=== PATIENT | female | born 1970 | race Caucasian/White ===

== ENCOUNTER → 2020-02-29 08:28 | Outpatient (BNVA) | payer OTHER, SELFPAY | PROVIDERS: PCP Family Medicine; Visit Provider Physician Assistant | DX: Z98.84 Bariatric surgery status (principal) | CPT/HCPCS: 99212 ==

== ENCOUNTER → 2020-06-01 08:44 | Outpatient (BNVA) | payer OTHER, SELFPAY | PROVIDERS: PCP Family Medicine; Visit Provider Physician Assistant | DX: F41.8 Other specified anxiety disorders (principal); Z98.84 Bariatric surgery status | CPT/HCPCS: Q3014 ==

== ENCOUNTER → 2020-06-29 08:13 | Outpatient (BNVA) | payer OTHER, SELFPAY | PROVIDERS: PCP Family Medicine; Visit Provider Dietitian, Registered ==

== ENCOUNTER → 2020-07-19 09:57 | Outpatient (BNVA) | payer OTHER, SELFPAY | PROVIDERS: PCP Family Medicine; Visit Provider Dietitian, Registered ==

== ENCOUNTER → 2020-09-14 16:25 | Outpatient (BNVA) | payer OTHER, SELFPAY | PROVIDERS: PCP Family Medicine; Visit Provider Physician Assistant | DX: E66.3 Overweight (principal); M19.90 Unspecified osteoarthritis, unspecified site; Z98.84 Bariatric surgery status; Z68.26 Body mass index [BMI] 26.0-26.9, adult | CPT/HCPCS: 99212 ==

== ENCOUNTER 2020-09-24 11:24 | Outpatient (REF) | payer OTHER, SELFPAY ==
[2020-09-24 13:21] LABS: MANUAL DIFF FLAG NO
[2020-09-24 13:41] LABS: Basophils Percent Auto 0.8 % (0-2); Eosinophils Absolute Auto 0.1 X10*3/uL (0.0-0.4); Eosinophils Percent Auto 2.6 % (0-4); Hematocrit 39.4 % (37-47); Hemoglobin 12.7 g/dl (12.0-16.0); Imm Gran Abs Auto 0.02 X10*3/uL (0.00-0.03); Imm Gran Pct Auto 0.4 % (0.0-0.4); Lymphocytes Absolute Auto 1.2 X10*3/uL (1.2-4.9); Lymphocytes Percent Auto 24.3 % (20-40); Mean Corpuscular HGB Conc 32.2 g/dl (31.0-35.0); Mean Corpuscular Volume 93.1 fL (80-98); Mean Platelet Volume 10.6 fL (9.4-12.3); Monocytes Absolute Auto 0.6 X10*3/uL (0.1-1.2); Monocytes Percent Auto 12.6 % (2-11); Neutrophils Percent Auto 59.3 % (45-73); Platelet Count 294 X10*3/uL (160-400); Red Blood Count 4.23 X10*6/uL (4.20-5.50); Red Cell Distribution Width 13.5 % (11.0-16.0); White Blood Count 5.1 X10*3/uL (4.8-10.8)
[2020-09-24 13:45] LABS: Estimated Average Glucose 97 mg/dL
[2020-09-24 13:47] LABS: Alanine Aminotransferase 12 U/L (0-31); Albumin Level 4.2 g/dL (3.5-5.0); Alkaline Phosphatase 63 U/L (39-117); Anion Gap 14 (12-20); Aspartate Amino Transferase 21 U/L (5-31); Bilirubin Total 0.7 mg/dL (0.0-1.0); Blood Urea Nitrogen 19 mg/dL (9-16); C Reactive Protein 0.07 mg/dL (< or = 0.50); Calcium 9.4 mg/dL (8.4-10.2); Carbon Dioxide 21 mmol/L (22-29); Chloride 105 mmol/L (96-108); Cholesterol 182 mg/dL; Estimated Glomerular Filt Rate > 60; Glucose Random 81 mg/dL (60-115); HDL Cholesterol 75 mg/dL; Iron 91 mcg/dL (30-160); LDL Cholesterol Calculated 97 mg/dl; Percent Iron Saturation 20 % (15-50); Potassium 4.8 mmol/L (3.3-5.1); Sodium 135 mmol/L (135-145); Total Iron Binding Capacity 457 mcg/dL (228-428); Total Protein 7.5 g/dL (6.5-8.0); Triglycerides 54 mg/dL; Unsaturated Iron Binding 366 ug/dL
[2020-09-24 14:07] LABS: Ferritin 12 ng/mL (10-250); TSH reflex Free T4 1.21 uIU/mL (0.32-4.0); Vitamin D 25-OH Total 30.5 ng/mL (>30)
[2020-09-24 14:22] LABS: Vitamin B12 476 pg/mL (200-900)
[2020-09-25 18:56] LABS: Insulin Level Total 3.8 uIU/mL
[2020-09-26 13:32] LABS: Calcium (PTHI) 9.6 mg/dL (8.6-10.2); PTHI 35 pg/mL (14-64)
[2020-09-27 06:32] LABS: Zinc 104 mcg/dL (60-130)
[2020-09-27 20:37] LABS: Vitamin A 40 mcg/dL (38-98)
[2020-09-30 11:52] LABS: Vitamin B1 9 nmol/L (8-30)
== END 2020-09-24 11:25 | disposition home or self-care (01) ==
LOC: HO.LAB 11:24
PROVIDERS: PCP Family Medicine; Visit Provider Physician Assistant
DX: M19.90 Unspecified osteoarthritis, unspecified site (principal); M79.7 Fibromyalgia; Z98.84 Bariatric surgery status
CPT/HCPCS: 36415; 80053; 80061; 82306; 82607; 82728; 82746; 83036; 83525; 83540; 83970; 84425; 84443; 84590; 84630; 85025; 86140

== ENCOUNTER → 2021-01-16 09:26 | Outpatient (BNVA) | payer OTHER, SELFPAY | PROVIDERS: PCP Family Medicine; Referring Provider Family Medicine; Visit Provider Physician Assistant | DX: E66.3 Overweight (principal); Z98.84 Bariatric surgery status; Z68.26 Body mass index [BMI] 26.0-26.9, adult | CPT/HCPCS: 99212 ==

== ENCOUNTER → 2021-05-07 09:33 | Outpatient (BNVA) | payer OTHER, SELFPAY | PROVIDERS: PCP Family Medicine; Visit Provider Dietitian, Registered | DX: E66.3 Overweight (principal); Z3A.28 28 weeks gestation of pregnancy | CPT/HCPCS: 97803 ==

== ENCOUNTER → 2021-10-09 12:56 | Outpatient (BNVA) | payer OTHER, SELFPAY | PROVIDERS: PCP Family Medicine; Visit Provider Physician Assistant Surgical | DX: E66.3 Overweight (principal); Z98.84 Bariatric surgery status; Z68.30 Body mass index [BMI] 30.0-30.9, adult | CPT/HCPCS: 99212 ==

== ENCOUNTER 2021-10-11 09:31 | Outpatient (REF) | payer OTHER, SELFPAY ==
[2021-10-11 10:22] LABS: Basophils Percent Auto 0.6 % (0-2); Eosinophils Absolute Auto 0.2 X10*3/uL (0.0-0.4); Eosinophils Percent Auto 3.2 % (0-4); Hematocrit 36.8 % (37.0-47.0); Hemoglobin 11.9 g/dl (12.0-16.0); Imm Gran Abs Auto 0.01 X10*3/uL (0.00-0.03); Imm Gran Pct Auto 0.2 % (0.0-0.4); Lymphocytes Absolute Auto 1.1 X10*3/uL (1.2-4.9); Lymphocytes Percent Auto 23.7 % (20-40); MANUAL DIFF FLAG SCAN; Mean Corpuscular HGB Conc 32.3 g/dl (31.0-35.0); Mean Corpuscular Hemoglobin 29.6 pg (27.0-33.0); Mean Corpuscular Volume 91.5 fL (80.0-98.0); Mean Platelet Volume 11.8 fL (9.4-12.3); Monocytes Absolute Auto 0.7 X10*3/uL (0.1-1.2); Monocytes Percent Auto 14.3 % (2-11); Neutrophils Absolute Auto 2.8 x10*3/uL (2.0-8.3); PLT CLUMP 1; Red Blood Count 4.02 X10*6/uL (4.20-5.50); Red Cell Distribution Width 14.5 % (11.0-16.0); SCAN SMEAR FLAG 1
[2021-10-11 10:39] LABS: Estimated Average Glucose 100 mg/dL; Hemoglobin A1c % 5.1 %
[2021-10-11 10:52] LABS: Alanine Aminotransferase 17 U/L (0-31); Alkaline Phosphatase 67 U/L (39-117); Anion Gap 12 (12-20); Aspartate Amino Transferase 19 U/L (5-31); Bilirubin Total 0.4 mg/dL (0.0-1.0); Blood Urea Nitrogen 15 mg/dL (9-16); C Reactive Protein 0.15 mg/dL (< or = 0.50); Calcium 9.1 mg/dL (8.4-10.2); Carbon Dioxide 24 mmol/L (22-29); Chloride 106 mmol/L (96-108); Cholesterol 203 mg/dL; Estimated Glomerular Filt Rate > 60; Glucose Random 88 mg/dL (60-115); HDL Cholesterol 69 mg/dL; Iron 49 mcg/dL (30-160); LDL Cholesterol Calculated 124 mg/dl; Percent Iron Saturation 10 % (15-50); Potassium 4.5 mmol/L (3.3-5.1); Sodium 137 mmol/L (135-145); Total Iron Binding Capacity 479 mcg/dL (228-428); Total Protein 7.4 g/dL (6.5-8.0); Triglycerides 51 mg/dL; Unsaturated Iron Binding 430 ug/dL
[2021-10-11 11:06] LABS: Ferritin 9 ng/mL (10-250); TSH reflex Free T4 2.15 uIU/mL (0.32-4.0); Vitamin D 25-OH Total 29.2 ng/mL (>30)
[2021-10-11 11:12] LABS: White Blood Count 4.8 X10*3/uL (4.8-10.8)
[2021-10-11 11:17] LABS: Folate 15.1 ng/mL (> or = 4.0); Platelet Count 193 X10*3/uL (160-400); Vitamin B12 463 pg/mL (200-900)
[2021-10-11 11:18] LABS: SLIDE REVIEW VERIFIED
[2021-10-11 11:44] LABS: Insulin 10 uU/mL (2-29)
[2021-10-14 15:52] LABS: Calcium (PTHI) 9.3 mg/dL (8.6-10.2); PTHI 54 pg/mL (16-77)
[2021-10-15 12:22] LABS: Vitamin B1 13 nmol/L (8-30)
[2021-10-15 14:51] LABS: Zinc 74 mcg/dL (60-130)
[2021-10-16 13:06] LABS: Vitamin A 41 mcg/dL (38-98)
== END 2021-10-11 09:32 | disposition home or self-care (01) ==
LOC: HO.LAB 09:31
PROVIDERS: PCP Family Medicine; Visit Provider Physician Assistant Surgical
DX: E66.3 Overweight (principal); Z98.84 Bariatric surgery status
CPT/HCPCS: 36415; 80053; 80061; 82306; 82607; 82728; 82746; 83036; 83525; 83540; 83970; 84425; 84443; 84590; 84630; 85025; 86140

== ENCOUNTER → 2022-08-14 11:27 | Outpatient (BNVA) | payer OTHER, SELFPAY | PROVIDERS: PCP Family Medicine; Visit Provider Physician Assistant Surgical | DX: E66.9 Obesity, unspecified (principal); M19.90 Unspecified osteoarthritis, unspecified site; M72.2 Plantar fascial fibromatosis; M79.7 Fibromyalgia; R10.2 Pelvic and perineal pain; F41.1 Generalized anxiety disorder; Z68.31 Body mass index [BMI] 31.0-31.9, adult; Z90.3 Acquired absence of stomach [part of] | CPT/HCPCS: 99212 ==

== ENCOUNTER 2022-11-11 11:09 | Outpatient (AMB) | payer OTHER, SELFPAY ==
--- NOTE | 2022-11-11 11:11 | MHC.OFFVISWM ---
Intake VS Expanded 11/11/22 11:20 Height 5 ft 2 in Weight 182 lb 3.2 oz BMI 33.3 BP 109/64 Blood Pressure Location Rt brachial Blood Pressure Position Sitting Pulse 66 Pulse Source Pulse Oximeter Temp 98.1 F Temperature Source Temporal Artery Scan Pulse Oximetry 97 Oxygen Delivery Method Room Air Body Fat 78.2 Body Fat Percentage 43.0 Free Fat Mass 103.8 Muscle Mass 98.6 Visceral Mass 11.0 Water Mass 73.8 BMR 1,452 Intake Visit Reasons: (OV) PO LSG 10/15/2018 Allergies No Known Allergies [No Known Allergies*] Allergy (Verified 11/11/22 11:14) Medication List - Last Reconciled 11/11/22 by MELODY Amador amitriptyline 25 mg PO BEDTIME biotin 1,000 mcg PO DAILY buspirone 15 mg PO TID cholecalciferol (vitamin D3) 25 mcg PO DAILY clonazepam 1 mg PO BID PRN cyanocobalamin (vitamin B-12) (Vitamin B-12) 1,000 mcg PO DAILY diclofenac sodium 1% (Arthritis Pain (diclofenac)) 2 grams topical QID iron,carbonyl-vitamin C 65 mg iron- 125 mg (Vitron-C) 1 tab PO BEDTIME meloxicam 15 mg PO DAILY methylprednisolone 4 mg PO DAILY multivitamin 1 tab PO DAILY oxybutynin chloride 5 mg PO BEDTIME PRN tramadol 50 mg PO TID PRN trazodone 0 mg PO venlafaxine ER 37.5 mg PO DAILY vitamin A 1 cap PO DAILY HPI HPI Comments History of Present Illness Details This?is a?52?yo female who is s/p LSG 10/15/2018. Presents for 4 year post op visit. Weight at last visit on 08/14/2022 was 173.2 pounds with a BMI of 31.6, weight today is 182.2 pounds, representing a 9 pound weight gain with a BMI today of 33.3.? No complaints of nausea, emesis, abdominal pain or reflux, or constipation. Had surgery in September for partial hysterectomy and bladder sling. Still having some pain with urination, questionable adhesions. Present meal plan includes: (goal of 70g protein/day) currently will have a coffee and 2 eggs for breakfast, bought protein shakes again, a meal of 4oz meat and vegetables or salad, sometimes root veg or rice Reports nutrition has been very bad during her postop period. Having lots of anxiety and eating items off plan. Getting strong cravings for sweets at nighttime. Exercise routine includes: can use stationary bike occasionally; uses treadmill and elliptical at gym occasionally. Not yet cleared for weights. Has not been doing exercises for the past 2 months. Continues to struggle with fibromyalgia and joint pain, heel pain. Seeing rheumatology, was prescribed PO pills and cream. Will return in 2 weeks for consideration of injection. Following with a therapist for anxiety. [facility] Medical History (Updated 11/11/22 @ 11:48 by MELODY Amador) Arthritis Depression with anxiety Fibromyalgia Surgical History H/O umbilical hernia repair Hx of hysterectomy S/P laparoscopic sleeve gastrectomy Tubal ligation status Family History Mother Diabetes Hypertension Father Hypertension Social History Alcohol intake: current Alcohol intake frequency: holidays/special occasions only Patient Tobacco Use Status: Never used Tobacco Assessment & Plan Assessment & Plan (1) Obesity: Code(s): E66.9 - Obesity, unspecified (2) S/P laparoscopic sleeve gastrectomy: Code(s): Z98.84 - Bariatric surgery status Plan Pt knows her nutrition is suboptimal. She wants to try going back to previous plan incorporating protein shakes, 1-2/day plus a small meal of eggs for breakfast and protein/veg for dinner. Encouraged her to increase exercise again as able, using whatever machines she is most comfortable with considering her fibro/arthritis. She reports being most successful with weight loss when she was exercising frequently. Pt due for labs. Currently taking Centrum MVI plus several vit supplements. After reviewing labs will make recommendations if any adjustments needed. RTC 3 months. Encouraged pt to reach out between appts if meal plan not working well for her. Patient is obese and is not considered stable at this time. I spent a total of 30 minutes reviewing/updating records, examining the patient and counseling the patient on weight management as detailed above. Orders: Orders Vitamin B12 and Folate Today Z98.84 - Bariatric surgery status Comprehensive Met. Panel Today Z98.84 - Bariatric surgery status C Reactive Protein Today Z98.84 - Bariatric surgery status Ferritin Today Z98.84 - Bariatric surgery status Hemoglobin A1c Today Z98.84 - Bariatric surgery status Insulin Today Z98.84 - Bariatric surgery status IRON PROFILE Today Z98.84 - Bariatric surgery status Lipid Panel Today Z98.84 - Bariatric surgery status PTHI Today Z98.84 - Bariatric surgery status TSH reflex Free T4 Today Z98.84 - Bariatric surgery status Vitamin A Today Z98.84 - Bariatric surgery status Vitamin B1 Today Z98.84 - Bariatric surgery status Vitamin D 25-OH Total Today Z98.84 - Bariatric surgery status Zinc Today Z98.84 - Bariatric surgery status Complete Blood Count Auto Diff Today Z98.84 - Bariatric surgery status Coding Level of Care Code Est Pt Level 4 (84829) Diagnoses Obesity E66.9 S/P laparoscopic sleeve gastrectomy Z98.84
[2022-11-11 11:20] VITALS: BP 109/64; PULSE 66; TEMP 36.7; O2SAT 97; BMI 33.3
== END 2022-11-11 11:47 | disposition home or self-care (01) ==
PROVIDERS: Visit Provider Physician Assistant Surgical
DX: E66.9 Obesity, unspecified (principal); Z68.33 Body mass index [BMI] 33.0-33.9, adult; Z90.3 Acquired absence of stomach [part of]; Z98.84 Bariatric surgery status
CPT/HCPCS: 99214

== ENCOUNTER → 2022-11-11 11:09 | Outpatient (BNVA) | payer OTHER, SELFPAY | PROVIDERS: Visit Provider Physician Assistant Surgical | DX: E66.9 Obesity, unspecified (principal); Z98.84 Bariatric surgery status; Z68.33 Body mass index [BMI] 33.0-33.9, adult | CPT/HCPCS: 99212 ==

== ENCOUNTER 2022-11-13 09:22 | Outpatient (REF) | payer OTHER, SELFPAY ==
[2022-11-13 09:42] LABS: MANUAL DIFF FLAG NO
[2022-11-13 09:50] LABS: Basophils Absolute Auto 0.1 X10*3/uL (0.0-0.2); Basophils Percent Auto 0.4 % (0-2); Eosinophils Absolute Auto 0.2 X10*3/uL (0.0-0.4); Eosinophils Percent Auto 1.3 % (0-4); Hematocrit 40.1 % (37.0-47.0); Hemoglobin 13.3 g/dl (12.0-16.0); Imm Gran Abs Auto 0.09 X10*3/uL (0.00-0.03); Imm Gran Pct Auto 0.8 % (0.0-0.4); Lymphocytes Absolute Auto 1.7 X10*3/uL (1.2-4.9); Lymphocytes Percent Auto 14.6 % (20-40); Mean Corpuscular HGB Conc 33.2 g/dl (31.0-35.0); Mean Corpuscular Hemoglobin 30.4 pg (27.0-33.0); Mean Corpuscular Volume 91.8 fL (80.0-98.0); Mean Platelet Volume 10.7 fL (9.4-12.3); Monocytes Absolute Auto 0.9 X10*3/uL (0.1-1.2); Monocytes Percent Auto 7.8 % (2-11); Neutrophils Absolute Auto 8.6 x10*3/uL (2.0-8.3); Neutrophils Percent Auto 75.1 % (45-73); Platelet Count 247 X10*3/uL (160-400); Red Blood Count 4.37 X10*6/uL (4.20-5.50); Red Cell Distribution Width 14.1 % (11.0-16.0); White Blood Count 11.5 X10*3/uL (4.8-10.8)
[2022-11-13 09:58] LABS: Estimated Average Glucose 94 mg/dL; Hemoglobin A1c % 4.9 %
[2022-11-13 11:13] LABS: Alanine Aminotransferase 13 U/L (0-31); Albumin Level 3.9 g/dL (3.5-5.0); Alkaline Phosphatase 80 U/L (39-117); Anion Gap 11 (12-20); Aspartate Amino Transferase 16 U/L (5-31); Bilirubin Total 0.6 mg/dL (0.0-1.0); Blood Urea Nitrogen 19 mg/dL (9-16); C Reactive Protein 0.27 mg/dL (< or = 0.50); Calcium 9.3 mg/dL (8.4-10.2); Carbon Dioxide 25 mmol/L (22-29); Chloride 103 mmol/L (96-108); Cholesterol 226 mg/dL; Estimated Glomerular Filt Rate > 60; Ferritin 20 ng/mL (10-250); Glucose Random 89 mg/dL (60-115); HDL Cholesterol 67 mg/dL; Iron 109 mcg/dL (30-160); LDL Cholesterol Calculated 147 mg/dl; Percent Iron Saturation 27 % (15-50); Potassium 4.5 mmol/L (3.3-5.1); Sodium 134 mmol/L (135-145); TSH reflex Free T4 1.21 uIU/mL (0.32-4.0); Total Iron Binding Capacity 407 mcg/dL (228-428); Total Protein 7.4 g/dL (6.5-8.0); Triglycerides 62 mg/dL; Unsaturated Iron Binding 298 ug/dL; Vitamin B12 594 pg/mL (200-900); Vitamin D 25-OH Total 36.4 ng/mL (>30)
[2022-11-13 11:53] LABS: Insulin 8 uU/mL (2-29)
[2022-11-14 17:43] LABS: PTHI 55 pg/mL (16-77)
[2022-11-19 01:28] LABS: Zinc 67 mcg/dL (60-130)
[2022-11-19 15:38] LABS: Vitamin B1 12 nmol/L (8-30)
[2022-11-20 11:08] LABS: Vitamin A 56 mcg/dL (38-98)
== END 2022-11-13 09:23 | disposition home or self-care (01) ==
LOC: HO.LAB 09:22
PROVIDERS: Visit Provider Physician Assistant Surgical
DX: Z98.84 Bariatric surgery status (principal); Z20.2 Contact with and (suspected) exposure to infections with a predominantly sexual mode of transmission; K91.2 Postsurgical malabsorption, not elsewhere classified
CPT/HCPCS: 36415; 80053; 80061; 82306; 82607; 82728; 82746; 83036; 83525; 83540; 83970; 84425; 84443; 84590; 84630; 85025; 86140

== ENCOUNTER 2023-03-03 14:00 | Outpatient (AMB) | payer OTHER, SELFPAY ==
--- NOTE | 2023-03-03 14:01 | MHC.OFFVISWM ---
Intake VS Expanded 03/03/23 14:08 Height 5 ft 2 in Weight 183 lb BMI 33.5 Intake Visit Reasons: VIDEO PO LSG 10/15/2018 Allergies No Known Allergies [No Known Allergies*] Allergy (Verified 11/11/22 11:14) HPI HPI Comments History of Present Illness Details Patient is 4.5 years s/p LSG in our program, she was last seen in November 2022 and was experiencing some weight gain. Labs done at that time revealed elevated cholesterol, all esle wnl. Has PT now due to plantar fasciitis Was covering from gym surgery for a few months, home all the time and has been very anxious and craves sweets.Having andrea menopausal symptoms. 9am - 2 -3 boiled eggs with, water with lemon coffee with Fairlife, with sugar 1pm - a shake - or 1 piece of toast with PB, or 4-6 oz chicken/pork with 4--6 oz vegetable and 4 oz white rice 6pm - same as lunch after dinner - cracker sand cheese or fruits or bar or cereal PFSH Medical History (Updated 11/11/22 @ 11:48 by MELODY Amador) Fibromyalgia Arthritis Depression with anxiety Surgical History H/O umbilical hernia repair Hx of hysterectomy S/P laparoscopic sleeve gastrectomy Tubal ligation status Family History Mother Diabetes Hypertension Father Hypertension Social History Alcohol intake: current Alcohol intake frequency: holidays/special occasions only Patient Tobacco Use Status: Never used Tobacco Assessment & Plan Assessment & Plan (1) Obesity: Code(s): E66.9 - Obesity, unspecified Plan: 4+ years s/p LSG with new weight gain and many personal struggles that she wants support with. Will schedule her with Ana and possible Amharic speaking group support. Meal plan: 9am - 2 hb eggs, coffe con half de batida O Fairlife 1pm - shake 6pm -3 oz protien, 3 oz vegetable 9pm - bar or yogurt Exercise - treadmill or walking for 300 calories 5 d/ week. Will discuss elevated cholesterol with her PCP. Aptt with me in October for 5 years. Appts now with Letitia Patient is still obese and is not considered stable at this time. I spent 25 minutes in total speaking with the patient via video conference counseling , reviewing records and charting in patients chart. . (2) S/P laparoscopic sleeve gastrectomy: Code(s): Z98.84 - Bariatric surgery status (3) Fibromyalgia: Code(s): M79.7 - Fibromyalgia Telehealth Telehealth Location of provider rendering services: practice address Location of patient: address on file Patient Identification confirmed using: Name, : Yes Telehealth method: video Patient verbally consented to treatment: Yes Patient verbally consented to billing insurance company: Yes Patient informed of any privacy concerns related to visit: Yes Coding Level of Care Code Tele Est Pt Level 4 (60632) Diagnoses Obesity E66.9 S/P laparoscopic sleeve gastrectomy Z98.84 Fibromyalgia M79.7
[2023-03-03 14:08] VITALS: BMI 33.5
--- OUTSIDE RECORDS SUMMARY | 2023-03-03 14:14 | XMS_ITS | Continuity of Care Document ---
Author Name Unknown Organization [facility] Address [address] [address]- Care Team Providers Care House Visitor Name Role Phone Saskia GARCIA, Farhan Primary Care Physician Encounter [facility] Date(s): 10/17/22 - 11/16/22 [facility] [address] [address]- Allergies, Adverse Reactions, Alerts No Known Medication Allergies Immunizations Given and Recorded Vaccine Date Status Refusal Reason [id number] 12y+ bivalent booster vax 04/18/22 Given influenza virus vaccine, inactivated 04/18/22 Give n influenza virus vaccine, inactivated 03/06/21 Give n influenza virus vaccine, inactivated 02/01/20 Give n influenza virus vaccine, inactivated 06/08/19 Give n influenza virus vaccine, inactivated 03/29/18 Give n influenza virus vaccine, inactivated 05/07/16 Give n influenza virus vaccine, inactivated 04/05/14 Give n influenza virus vaccine, inactivated 1 02/04/12 [facility] influenza virus vaccine, inactivated 2 03/07/10 [facility] influenza virus vaccine, inactivated 3 05/28/09 [facility] SARS-CoV-2 (COVID-19) mRNA BNT-162b2 vac 03/07/21 Given SARS-CoV-2 (COVID-19) mRNA-1273 vaccine 07/31/20 R ecorded SARS-CoV-2 (COVID-19) mRNA-1273 vaccine 07/03/20 R ecorded tetanus/diphtheria/pertussis, acel(Tdap) 06/08/19 Given tetanus/diphtheria/pertussis, acel(Tdap) 4 03/07/10 Given pneumococcal 23-valent vaccine 03/29/18 Given Measles/Mumps/Rubella Virus Vaccine 05/07/16 Given influenza virus vaccine, live 5 05/28/09 Given 1Admin Note: VIS 11/26/10 GIVEN 2Admin Note: VIS 12/11/09 GIVEN 3Admin Note: VIS 12/12/08 given 4Admin Note: VIS 03/21/08 GIVEN 5Admin Note: --VIS 02/02/09 GIVEN Medications amitriptyline 25 mg oral tablet 25 mg, 1, tablet, By Mouth, Daily at bedtime, Given to rheuma, Dr Aponte, # 30 tablet, Refills 0,Maintenance, 03/06/21 13:29:00 EDT, Partial fill upon patient request if the prescription is for a schedule II opioid drug. Start Date: 03/06/21 Status: Ordered busPIRone 15 mg oral tablet 2 tablet = 30 mg, By Mouth, 3 times a day, given by psych, Fatmata Person, # 270 tablet, 0 Refills, Maintenance, 06/12/22 11:05:00 EST, Tablet Start Date: 06/12/22 Status: Ordered Centrum Women 50 Plus Multigummies 1 tablet, By Mouth, Daily in AM, 0 Refills, Maintenance, 06/12/22 11:09:00 EST Start Date: 06/12/22 Status: Ordered clonazePAM 0.5 mg oral tablet 1 tablet = 0.5 mg, By Mouth, 2 times a day, 0 Refills, Maintenance, 06/12/22 11:05:00 EST, Tablet Start Date: 06/12/22 Status: Ordered ferrous gluconate 240 mg oral tablet 1 tablet = 240 mg, By Mouth, Daily, Take with juice discontinue ferrous sulfate, # 30 tablet, 11 Refills, Maintenance, 03/06/22 11:56:00 EDT, [facility]/pharmacy #[id number], Partial fill upon patient request if the prescription is for a schedule II opioid . Start Date: 03/06/22 Stop Date: 03/01/23 Status: Ordered fluticasone 50 mcg/inh nasal spray See Instructions, USE 2 SPRAYS IN EACH NOSTRIL ONCE A DAY DURING ALLERGY SEASON, # 48 mL, 1 Refills, Maintenance, 04/21/22 18:21:00 EST, [facility] STORE [id number], 90, USE 2 SPRAYS IN EACH NOSTRIL ONCE A DAY DURING ALLERGY SEASON, 158, cm, 03/06/22 11:21:00 EDT... Start Date: 04/21/22 Status: Ordered ibuprofen 600 mg oral tablet 600 mg, 1, tablet, By Mouth, Every 6 hours, PRN, Do not take if using Meloxicam, # 40 tablet, Refills 0, Tot. Refills 0, Maintenance, Pain , Mild, 09/25/22 9:42:00 EDT, Route to Pharmacy Electronically, [facility]/pharmacy #[id number], Partial fill upon patient re... Start Date: 09/25/22 Status: Ordered oxybutynin 5 mg/24 hours oral tablet, extended release 1 tablet = 5 mg, By Mouth, Daily at bedtime, # 30 tablet, 3 Refills, Maintenance, 10/24/22 15:08:00EDT, ER Tablet, [facility]/pharmacy #[id number], Partial fill upon patient request if the prescription is for a schedule II opioid drug., 158, cm, 10/23/22 9:44:00... Start Date: 10/24/22 Status: Ordered TENS electrode pads TENS electrode pads, See Instructions, # 1 each, Refills 5, Tot. Refills 5, Maintenance, 1 box use as directed for back pain Dx Chronic myosfacial back pain 1 box of 4, 06/08/19 14:23:00 EST, Compound Start Date: 06/08/19 Status: Ordered traMADol 50 mg oral tablet 1 tablet = 50 mg, By Mouth, Every 12 hours, PRN Pain , Moderate, TOME KARAN TABLETA POR V?A ORAL DOS VECES AL D?A CUANDO SEA NECESARIO PARA EL DOLOR (NEED INS) Start Date: 06/08/19 Status: Ordered trazodone 100 mg oral tablet 1-1.5 tablet, By Mouth, Daily at bedtime, given by psychFatmata, 0 Refills, Maintenance, 06/05/14 10:44:11 EST Start Date: 06/05/14 Status: Ordered venlafaxine 150 mg oral capsule, extended release 1 capsule = 150 mg, By Mouth, Daily, given by psychFatmata, # 30 capsule, 0 Refills, Maintenance, 03/06/21 13:31:00 EDT, ER Capsule Start Date: 03/06/21 Status: Ordered Vitamin B12 1000 mcg oral tablet 1 tablet = 1,000 mcg, By Mouth, Daily, # 30 tablet, 11 Refills, Maintenance, 06/12/22 11:06:00 EST,Tablet, [facility]/pharmacy #[id number], 158, cm, 06/12/22 9:31:00 EST, Height, 75.9, kg, 11/26/21 13:12:00 EDT,Dry Weight Start Date: 06/12/22 Status: Ordered Vitamin D3 1000 intl units oral tablet 1 tablet = 1,000 International_Units, By Mouth, Daily, # 30 tablet, 11 Refills, Maintenance, 06/12/22 11:07:00 EST, [facility]/pharmacy #[id number], ., 158, cm, 06/12/22 9:31:00 EST, Height, 75.9, kg, 11/26/21 13:12:00 EDT, Dry Weight Start Date: 06/12/22 Status: Ordered Vivelle-Dot 0.05 mg/24 hours twice weekly transdermal film, extended release See Instructions, 1 patch apply to skin two times a week per instructions, # 24 patch, 3 Refills, Maintenance, 11/13/22 10:25:00 EDT, [facility]/pharmacy #[id number], Partial fill upon patient request if the prescription is for a schedule II opioid drug., 158, cm,... Start Date: 11/13/22 Status: Ordered Problem List Condition Confirmation Course Effective Dates Status Health Status Informant Anxiety depression Confirmed 2004 Active Binge-eating disorder, moderate Confirmed Active Cervical arthritis 1 Confirmed 09/18/21 Active Chronic back pain 2 Confirmed Active Fibromyalgia Confirmed Active Gastritis Confirmed Active Hypercholesterolemia Confirmed Active Insomnia Confirmed Active Iron deficiency anemia Confirmed Active Encounter for IUD insertion Confirmed Active Encounter for Liletta IUD insertion Confirmed 07/01/17 Active Migraines Confirmed Active Obese class I Confirmed Active Obesity Confirmed Active Panic attack Confirmed 2004 Active *[phone] Differential Tester Rhonda Harrison Confirmed Active Seasonal allergic rhinitis Confirmed Active Varicella immune 3 Confirmed 09/19/15 Active Vitamin D deficiency Confirmed 03/16/08 Active 1Per cervical x-rays 09/18/2021:C4-C5 there is moderate disc space narrowing. C5-C6 moderate disc space narrowing and small osteophytes. At C6-C7 mild disc space narrowing. 2lumbar MRI 07/31/12 Minimal annular bulging is present at L4/5. No stenosis is produced. Partial disc desiccation is present at L5/S1. A small left foraminal disc protrusion is present. No nerve root compression is produced. 3Per titers Social History Social History Type Response Smoking Status Never (less than 100 in lifetime) entered on: 05/17/20 Sex Implantable Device List Procedure Provider Procedure Date Device Type Site Transvaginal Tape Cysto Tresa DO, Melina 09/09/22 Unknown Urethra Device Identifier Serial Number Lot or Batch Number Manufacturing Date Expiration Date Distinct Identification Code MRI Safety Implantable Status Assigning Authority Unknown Unknown [id number] Unknown 07/23/25 Unknown Unknown Active Unknown Patient Care team information Care Team Personnel Name: Rebecca Louis RN Position: [facility] RN Member Role: Primary Care Nurse Name: Jenni Rosado Position: [facility] RN Member Role: Primary Care Nurse Name: Farhan Kruger MD Position: [facility] Physician - Primary Care Member Role: PCP Address: Address: [address] [place] [address]- Care Team Related Persons Name: MAYLIN DUBOSE Address: [address] [place] [address] Name: TAMERA BOJORQUEZ Address: home [address] [place] [address]
--- OUTSIDE RECORDS SUMMARY | 2023-03-03 14:14 | XMS_ITS | Continuity of Care Document ---
Author Name Unknown Organization [facility] Address [address] [place] [address]- Care Team Providers Care Neurosurgical Nurse Name Role Phone Saskia GRACIA, Farhan Primary Care Physician Encounter [facility] Date(s): 10/09/22 - 10/10/[address] [address]- Discharge Disposition: A-D/C Walkout Attending Physician: Not on Staff, Attending MD Admitting Physician: Not on Staff, Admitting MD Referring Physician: Not on Staff, Referring MD Allergies, Adverse Reactions, Alerts No Known Medication Allergies Immunizations Given and Recorded Vaccine Date Status Refusal Reason [id number] 12y+ bivalent booster vax 04/18/22 Given influenza [...] tablet, 11 Refills, Maintenance, 03/06/22 11:56:00 EDT, [facility]/pharmacy #[id number], Partial fill upon patient request if the prescription is for a schedule II opioid . Start Date: 03/06/22 Stop Date: 03/01/23 Status: Ordered fluticasone 50 mcg/inh nasal spray See Instructions, USE 2 SPRAYS IN EACH NOSTRIL ONCE A DAY DURING ALLERGY SEASON, # 48 mL, 1 Refills, Maintenance, 04/21/22 18:21:00 EST, [id number], 90, USE 2 SPRAYS IN EACH NOSTRIL ONCE A DAY DURING ALLERGY SEASON, 158, cm, 03/06/22 11:21:00 EDT... Start Date: 04/21/22 Status: Ordered ibuprofen 600 mg oral tablet 600 mg, 1, tablet, By Mouth, Every 6 hours, PRN, Do not take if using Meloxicam, # 40 tablet, Refills 0, Tot. Refills 0, Maintenance, Pain , Mild, 09/25/22 9:42:00 EDT, [id number] fill upon patient re... Start Date: 09/25/22 Status: Ordered Macrobid macrocrystals-monohydrate 100 mg oral capsule 1 capsule = 100 mg, By Mouth, 2 times a day, for 5 days, # 10 capsule, 0 Refills, Acute 10/15/22 23:09:00 EDT, 10/10/22 23:09:00 EDT, [facility]apsule[id number] Partial fill upon patient request ifthe prescription is for a schedule II opioid drug.,... Start Date: 10/10/22 Stop Date: 10/15/22 Status: Ordered TENS electrode pads TENS electrode [...] By Mouth, Daily at bedtime, given by Fatmata stokes, 0 Refills, Maintenance, 06/05/14 10:44:11 EST Start Date: 06/05/14 Status: Ordered venlafaxine 150 mg oral capsule, extended release 1 capsule = 150 mg, By Mouth, Daily, given by Fatmata stokes, # 30 capsule, 0 Refills, Maintenance, 03/06/21 13:31:00 EDT, ER Capsule Start Date: 03/06/21 Status: Ordered Vitamin B12 1000 mcg oral tablet 1 tablet = 1,000 mcg, By Mouth, Daily, # 30 tablet, 11 Refills, Maintenance, 06/12/22 11:06:00 EST,Tablet, [facility]/pharmacy #[id number], 158, cm, 06/12/22 9:31:00 EST, Height, 75.9, kg, 11/26/21 13:12:00 EDT,Dry Weight Start Date: 06/12/22 Status: Ordered Vitamin D3 1000 intl units oral tablet 1 tablet = 1,000 International_Units, By Mouth, Daily, # 30 tablet, 11 Refills, Maintenance, 06/12/22 11:07:00 EST, [facility]/pharmacy #[id number], ., 158, cm, 06/12/22 9:31:00 EST, Height, 75.9, kg, 11/26/21 13:12:00 EDT, Dry Weight Start Date: 06/12/22 Status: Ordered Problem List Condition Confirmation Course [...] Confirmed Active Panic attack Confirmed 2004 Active *[id number] Security Control Center Operator Rhonda Harrison Confirmed Active Seasonal allergic rhinitis [...] nerve root compression is produced. 3Per titers Vital Signs Most recent to oldest [Reference Range]: 1 2 3 Weight 81.1 kg (10/09/22 9:43 PM) Oxygen Saturation [94-100 %] 98 % (10/10/22 4:19 AM) 100 % (10/10/22 1:43 AM) 100 % (10/09/22 9:43 PM) Pulse Rate [55-90 bpm] 64 bpm (10/10/22 4:19 AM) 72 bpm (10/10/22 1:43 AM) 74 bpm (10/09/22 9:43 PM) Blood Pressure [90-138/55-84 mm Hg] 117/75mm Hg (10/10/22 4:19 AM) 114/71mm Hg (10/10/22 1:43 AM) 121/71mm Hg (10/09/22 9:43 PM) Respiratory Rate [16-30 br/min] 16 br/min (10/10/22 4:19 AM) 16 br/min (10/10/22 1:43 AM) 18 br/min (10/09/22 9:43 PM) Temperature [96.8-100.4 DegF] 98.3 DegF (10/10/22 4:19 AM) 98.4 DegF (10/10/22 1:43 AM) 98.3 DegF (10/09/22 9:43 PM) Mode of Delivery (Oxygen) Room air (10/10/22 4:19 AM) Room air (10/10/22 1:43 AM) Room air (10/09/22 9:43 PM) Blood pressure sites Arm, right (10/10/22 4:19 AM) Arm, right (10/10/22 1:43 AM) Arm, right (10/09/22 9:43 PM) Temperature Route Oral (10/10/22 4:19 AM) Oral (10/10/22 1:43 AM) Oral (10/09/22 9:43 PM) Weight Obtained Via Standing scale (10/09/22 9:43 PM) Social History Social History Type Response Smoking Status Never (less than 100 in lifetime) entered on: 05/17/20 Sex Implantable Device List Procedure Provider Procedure Date Device Type Site Transvaginal Tape Cysto Tresa DO, Melina 09/09/22 Unknown Urethra Device Identifier Serial Number Lot or Batch Number Manufacturing Date Expiration Date Distinct Identification Code MRI Safety Implantable Status Assigning Authority Unknown Unknown [id number] Unknown 07/23/25 Unknown Unknown Active Unknown EKG study * Event Display: ECG 12-Lead Authored Date: Please click on pdf link to open report * Event Display: ECG 12-Lead Authored Date: Ventricular Rate: 60 BPM Atrial Rate: 60 BPM P-R Interval: 126 ms QRS Duration: 62 ms Q-T Interval: 404 ms QTC Calculation(Bazett): 404 ms P Panora: 28 degrees R Panora: 29 degrees T Panora: 42 degrees Poor data quality, interpretation may be adversely affected Normal sinus rhythm Normal ECG Confirmed by DANIEL LEIGH MD ([id number]) on 10/10/2022 7:08:52 AM Chambers: DANIEL LEIGH MD Patient Care team information Care Team Personnel Name: Rebecca Louis RN Position: [facility] RN Member Role: Primary Care Nurse Name: Jenni Rosado Position: [facility] RN Member Role: Primary Care Nurse Name: Farhan Kruger MD Position: [facility] Physician - Primary Care Member Role: PCP Address: Address: [address] [place] [address]- Care Team Related Persons Name: MAYLIN DUBOSE Address: [address] [place] [address] Name: TAMERA BOJORQUEZ Address: home [address] [place] [address]
--- OUTSIDE RECORDS SUMMARY | 2023-03-03 14:14 | XMS_ITS | Continuity of Care Document ---
Author Name Unknown Organization [facility] Address [address], [address] [place] [address]- Care Team Providers Care Medical Territory Manager Name Role Phone Saskia GARCIA, Farhan Primary Care Physician Encounter [facility] [place] Date(s): 08/19/22 - 09/18/22 [facility] [address], [address]th [place] [address]- Allergies, Adverse Reactions, Alerts No Known Medication Allergies Immunizations Given and Recorded Vaccine Date Status Refusal Reason [id number] 12y+ bivalent booster vax 04/18/22 Given influenza [...] tablet, 11 Refills, Maintenance, 03/06/22 11:56:00 EDT, [facility]/pharmacy #[id number], Partial fill upon patient request if the prescription is for a schedule II opioid . Start Date: 03/06/22 Stop Date: 03/01/23 Status: Ordered fluticasone 50 mcg/inh nasal spray See Instructions, USE 2 SPRAYS IN EACH NOSTRIL ONCE A DAY DURING ALLERGY SEASON, # 48 mL, 1 Refills, Maintenance, 04/21/22 18:21:00 EST, [facility] STORE [id number], 90, USE 2 SPRAYS IN EACH NOSTRIL ONCE A DAY DURING ALLERGY SEASON, 158, cm, 03/06/22 11:21:00 EDT... Start Date: 04/21/22 Status: Ordered ibuprofen 600 mg oral tablet 600 mg, 1, tablet, By Mouth, Every 6 hours, PRN, Do not take if re-start Meloxicam, # 40 tablet, Refills 0, Tot. Refills 0, Maintenance, Pain , Mild, 09/10/22 7:52:00 EDT, Route to Pharmacy Electronically, [facility]/pharmacy #[id number], Partial fill upon patient... Start Date: 09/10/22 Status: Ordered MiraLax oral powder for reconstitution = 17 Gm, By Mouth, Daily, PRN Constipation, dissolve in water before taking, # 255 Gm, 0 Refills, Maintenance, 09/09/22 15:56:00 EDT, REC Powder, [facility]/pharmacy #[id number], Partial fill upon patient requestif the prescription is for a schedule II opioid ayush... Start Date: 09/09/22 Status: Ordered oxyCODONE 5 mg oral tablet 5 mg, 1, tablet, By Mouth, Every 6 hours, PRN, # 20 tablet, Refills 0, Tot. Refills 0, Maintenance,Pain , Severe, 09/10/22 9:08:00 EDT, Route to Pharmacy Electronically, [facility]/pharmacy #[id number], Partial fill upon patient request, 158, cm, 09/10/22 7:01:00... Start Date: 09/10/22 Status: Ordered simethicone 80 mg oral tablet, chewable 80 mg, Chew, 3 times a day, PRN, # 36 tablet, Refills 0, Tot. Refills 0, Maintenance, Gas, 09/09/2314:56:00 EDT, Route to Pharmacy Electronically, [facility]/pharmacy #[id number], Partial fill upon patient request if the prescription is for a schedule II opioid d... Start Date: 09/09/22 Status: Ordered TENS electrode pads TENS electrode [...] 10:44:11 EST Start Date: 06/05/14 Status: Ordered Tylenol Extra Strength 500 mg oral tablet 2 tablet = 1,000 mg, By Mouth, Every 6 hours, PRN for pain, # 40 tablet, 0 Refills, Maintenance, 09/09/22 15:56:00 EDT, Tablet, [facility]/pharmacy #[id number], Partial fill upon patient request if the prescription is for a schedule II opioid drug., 158, cm, 09/09... Start Date: 09/09/22 Status: Ordered venlafaxine 150 mg oral capsule, extended release 1 capsule = 150 mg, By Mouth, Daily, given by psychFatmata, # 30 capsule, 0 Refills, Maintenance, 03/06/21 13:31:00 EDT, ER Capsule Start Date: 03/06/21 Status: Ordered Vitamin B12 1000 mcg oral tablet 1 tablet = 1,000 mcg, By Mouth, Daily, # 30 tablet, 11 Refills, Maintenance, 06/12/22 11:06:00 EST,Tablet, [id number], 158, cm, 06/12/22 9:31:00 EST, Height, 75.9, kg, 11/26/21 13:12:00 EDT,Dry Weight Start Date: 06/12/22 Status: Ordered Vitamin D3 1000 intl units oral tablet 1 tablet = 1,000 International_Units, By Mouth, Daily, # 30 tablet, 11 Refills, Maintenance, 06/12/22 11:07:00 EST, [id number], ., 158, cm, 06/12/22 9:31:00 EST, [...] Confirmed Active Panic attack Confirmed 2004 Active *[id number] Child Health Associate Rhonda Harrison Confirmed Active Seasonal allergic rhinitis [...] Type Site Transvaginal Tape Cysto Tresa DO, Meilna 09/09/22 Unknown Urethra Device Identifier Serial Number Lot or Batch Number Manufacturing Date Expiration Date Distinct Identification Code MRI Safety Implantable Status Assigning Authority Unknown Unknown [id number] Unknown 07/23/25 Unknown Unknown Active Unknown Patient Care team information Care Team Personnel Name: Rebecca Louis RN Position: [facility] RN Member Role: Primary Care Nurse Name: Jenni Rosado Position: [facility] RN Member Role: Primary Care Nurse Name: Farhan Kruger MD Position: [facility] Primary Care Physician Member Role: PCP Address: Address: [address] [place] [address]- Care Team Related Persons Name: MAYLIN DUBOSE Address: home [address] [place] [address] Name: TAMERA BOJORQUEZ Address: home [address] [place] [address]
--- OUTSIDE RECORDS SUMMARY | 2023-03-03 14:14 | XMS_ITS | Continuity of Care Document ---
Author Name Unknown Organization [facility] Address [address] [place] [address]- Care Team Providers Care Child And Adolescent Psychologist Name Role Phone Saskia GARCIA, Farhan Primary Care Physician Encounter [facility] Date(s): 08/20/22 - 09/19/22 [facility] [address] [place], [place] [address] Attending Physician: Nenita Sheridan Admitting Physician: AdmtrNenita Referring Physician: Admtr, Ar8 Allergies, Adverse Reactions, Alerts No Known Medication Allergies Immunizations Given and Recorded Vaccine Date Status Refusal Reason [id number] 12y+ bivalent booster vax 04/18/22 Given influenza [...] tablet, 11 Refills, Maintenance, 03/06/22 11:56:00 EDT, [facility]/pharmacy #[id number], Partial fill upon patient request if the prescription is for a schedule II opioid . Start Date: 03/06/22 Stop Date: 03/01/23 Status: Ordered fluticasone 50 mcg/inh nasal spray See Instructions, USE 2 SPRAYS IN EACH NOSTRIL ONCE A DAY DURING ALLERGY SEASON, # 48 mL, 1 Refills, Maintenance, 04/21/22 18:21:00 EST, [facility] STORE 39261, 90, USE 2 SPRAYS IN EACH NOSTRIL ONCE A DAY DURING ALLERGY SEASON, 158, cm, 03/06/22 11:21:00 EDT... Start Date: 04/21/22 Status: Ordered ibuprofen 600 mg oral tablet 600 mg, 1, tablet, By Mouth, Every 6 hours, PRN, Do not take if re-start Meloxicam, # 40 tablet, Refills 0, Tot. Refills 0, Maintenance, Pain , Mild, 09/10/22 7:52:00 EDT, Route to Pharmacy Electronically, [facility]/pharmacy #[id number], Partial fill upon patient... Start Date: 09/10/22 Status: Ordered MiraLax oral powder for reconstitution = 17 Gm, By Mouth, Daily, PRN Constipation, dissolve in water before taking, # 255 Gm, 0 Refills, Maintenance, 09/09/22 15:56:00 EDT, REC Powder, [id number], Partial fill upon patient requestif the prescription is for a schedule II opioid ayush... Start Date: 09/09/22 Status: Ordered oxyCODONE 5 mg oral tablet 5 mg, 1, tablet, By Mouth, Every 6 hours, PRN, # 20 tablet, Refills 0, Tot. Refills 0, Maintenance,Pain , Severe, 09/10/22 9:08:00 EDT, Route to Pharmacy Electronically, [facility]/pharmacy #[id number], Partial fill upon patient request, 158, cm, 09/10/22 7:01:00... Start Date: 09/10/22 Status: Ordered simethicone 80 mg oral tablet, chewable 80 mg, Chew, 3 times a day, PRN, # 36 tablet, Refills 0, Tot. Refills 0, Maintenance, Gas, 09/09/2314:56:00 EDT, Route to Pharmacy Electronically, [facility]/pharmacy #[id number], Partial fill upon patient [...] 0 Refills, Maintenance, 09/09/22 15:56:00 EDT, Tablet, [facility]/pharmacy #[id number], Partial fill upon patient [...] Confirmed Active Panic attack Confirmed 2004 Active *[id number] Manager Financial Reporting Rhonda Harrison Confirmed Active Seasonal allergic rhinitis [...] Safety Implantable Status Assigning Authority Unknown Unknown [id number] Unknown 07/23/25 Unknown Unknown Active Unknown Patient Care team information Care Team Personnel Name: Rebecca Louis RN Position: [facility] RN Member Role: Primary Care Nurse Name: Jenni Rosado Position: [facility] RN Member Role: Primary Care Nurse Name: Farhan Kruger MD Position: [facility] Primary Care Physician Member Role: PCP Address: Address: [address] [place] [address]- Care Team Related Persons Name: MAYLIN DUBOSE Address: home [address] [place] [address] Name: TAMERA BOJORQUEZ Address: home [address] [place] [address]
--- OUTSIDE RECORDS SUMMARY | 2023-03-03 14:14 | XMS_ITS | Continuity of Care Document ---
Author Name Unknown Organization [facility] Address [address] [place] [address]- Care Team Providers Care Bacteriologist Medical Name Role Phone Saskia GARCIA, Farhan Primary Care Physician [place] [facility] 01/09/23 - 02/08/23 [facility] [address]- Attending Physician: Nenita Sheridan Admitting Physician: AdmNenita jeffers Referring Physician: Admtr, ArZafar Allergies, Adverse Reactions, Alerts No Known Medication Allergies Immunizations Given and Recorded Vaccine Date Status Refusal Reason [id number] 12y+ bivalent booster vax 04/18/22 Given influenza [...] tablet, 11 Refills, Maintenance, 03/06/22 11:56:00 EDT, [facility]/pharmacy #[id number], Partial fill upon patient request if the prescription is for a schedule II opioid . Start Date: 03/06/22 Stop Date: 03/01/23 Status: Ordered fluticasone 50 mcg/inh nasal spray See Instructions, USE 2 SPRAYS IN EACH NOSTRIL ONCE A DAY DURING ALLERGY SEASON, # 48 mL, 1 Refills, Maintenance, 04/21/22 18:21:00 EST, [facility] STORE 63353, 90, USE 2 SPRAYS IN EACH NOSTRIL ONCE A DAY DURING ALLERGY SEASON, 158, cm, 03/06/22 11:21:00 EDT... Start Date: 04/21/22 Status: Ordered TENS electrode pads TENS electrode [...] tablet, 11 Refills, Maintenance, 06/12/22 11:06:00 EST,Tablet, [facility]/pharmacy #[id number], 158, cm, 06/12/22 9:31:00 EST, Height, 75.9, kg, 11/26/21 13:12:00 EDT,Dry Weight Start Date: 06/12/22 Status: Ordered Vitamin D3 1000 intl units oral tablet 1 tablet = 1,000 International_Units, By Mouth, Daily, # 30 tablet, 11 Refills, Maintenance, 06/12/22 11:07:00 EST, [facility]/pharmacy #[id number], ., 158, cm, 06/12/22 9:31:00 EST, Height, 75.9, kg, 11/26/21 13:12:00 EDT, Dry Weight Start Date: 06/12/22 Status: Ordered Vivelle-Dot 0.075 mg/24 hours twice weekly transdermal film, extended release See Instructions, 1 patch, # 24 patch, 3 Refills, Maintenance, 11/27/22 11:24:00 EDT, [id number], Partial fill upon patient request if the prescription is for a schedule II opioid drug., 158,cm, 10/23/22 9:44:00 EDT, Height, 84, kg, 10/31/22... Start Date: 11/27/22 Status: Ordered Problem List Condition Confirmation Course [...] Confirmed Active Panic attack Confirmed 2004 Active *[id number] Publications Production Supervisor Rhonda Harrison Confirmed Active Seasonal allergic rhinitis [...] Date Device Type Site Transvaginal Tape Cysto Melina Gtz DO 09/09/22 Unknown Urethra Device Identifier Serial Number Lot or Batch Number Manufacturing Date Expiration Date Distinct Identification Code MRI Safety Implantable Status Assigning Authority Unknown Unknown [id number] Unknown 07/23/25 Unknown Unknown Active Unknown Laboratory * Event Display: Non [facility] Lab Results Authored Date: [id number] * Event Display: Non [facility] Lab Results Authored Date: [id number] * Event Display: Non [facility] Lab Results Authored Date: * Event Display: Non [facility] Lab Results Authored Date: Patient Care team information Care Team Personnel Name: Jenni Rosado Position: [facility] RN Member Role: Primary Care Nurse Name: Farhan Kruger MD Position: [facility] Physician - Primary Care Member Role: PCP Address: Address: [address] [place] [address] Care Team Related Persons Name: MAYLIN DUBOSE Address: home [address] [place] [address] Name: TAMERA BOJORQUEZ Address: [address] [place] [address]
--- OUTSIDE RECORDS SUMMARY | 2023-03-03 14:14 | XMS_ITS | Continuity of Care Document ---
Author Name Unknown Organization [facility] Address [address] [place] [address]- Care Team Providers Care Practice Advisor Name Role Phone Saskia GARCIA, Farhan Primary Care Physician Encounter [facility] Date(s): 10/10/22 - 11/09/22 [facility] [address]- [place] Allergies, Adverse Reactions, Alerts No Known Medication Allergies Immunizations Given and Recorded Vaccine Date Status Refusal Reason [id number] 12y+ bivalent booster vax 04/18/22 Given influenza [...] tablet, 11 Refills, Maintenance, 03/06/22 11:56:00 EDT, [facility]/pharmacy #[id number], Partial fill upon patient request if the prescription is for a schedule II opioid . Start Date: 03/06/22 Stop Date: 03/01/23 Status: Ordered fluticasone 50 mcg/inh nasal spray See Instructions, USE 2 SPRAYS IN EACH NOSTRIL ONCE A DAY DURING ALLERGY SEASON, # 48 mL, 1 Refills, Maintenance, 04/21/22 18:21:00 EST, [facility] STORE 03189, 90, USE 2 SPRAYS IN EACH NOSTRIL ONCE A DAY DURING ALLERGY SEASON, 158, cm, 03/06/22 11:21:00 EDT... Start Date: 04/21/22 Status: Ordered ibuprofen 600 mg oral tablet 600 mg, 1, tablet, By Mouth, Every 6 hours, PRN, Do not take if using Meloxicam, # 40 tablet, Refills 0, Tot. Refills 0, Maintenance, Pain , Mild, 09/25/22 9:42:00 EDT, Route to Pharmacy Electronically, [facility]/pharmacy #[id number], Partial fill upon patient re... Start Date: 09/25/22 Status: Ordered oxybutynin 5 mg/24 hours oral tablet, extended release 1 tablet = 5 mg, By Mouth, Daily at bedtime, # 30 tablet, 3 Refills, Maintenance, 10/24/22 15:08:00EDT, ER Tablet, [facility]/pharmacy #[id number], Partial fill upon patient [...] two times a week per instructions, # 8 patch, 11 Refills, Maintenance, 10/23/22 10:13:00 EDT, [id number], Partial fill upon patient request if the prescription is for a schedule II opioid drug., 158, cm,... Start Date: 10/23/22 Status: Ordered Problem List Condition Confirmation Course [...] Confirmed Active Panic attack Confirmed 2004 Active *[id number] Evs Tech Rhonda Harrison Confirmed Active Seasonal allergic rhinitis [...] Date Device Type Site Transvaginal Tape Cysto Jeronimo Gtz DOali 09/09/22 Unknown Urethra Device Identifier Serial Number Lot or Batch Number Manufacturing Date Expiration Date Distinct Identification Code MRI Safety Implantable Status Assigning Authority Unknown Unknown [id number] Unknown 07/23/25 Unknown Unknown Active Unknown Patient Care team information Care Team Personnel Name: Rebecca Louis RN Position: [facility] RN Member Role: Primary Care Nurse Name: Jenni Rosado Position: [facility] RN Member Role: Primary Care Nurse Name: Farhan Kruger MD Position: [facility] Physician - Primary Care Member Role: PCP Address: Address: [address] [place] [address]- Care Team Related Persons Name: MAYLIN DUBOSE Address: home [address] [place] [address] Name: TAMERA BOJORQUEZ Address: [address] [place] [address]
--- OUTSIDE RECORDS SUMMARY | 2023-03-03 14:15 | XMS_ITS | Continuity of Care Document ---
Author Name Unknown Organization [facility] Address [address], [address] [place] [address]- Care Team Providers Care Customer Service Attendant Name Role Phone Saskia GARCIA, Farhan Primary Care Physician [place] [facility] [place] 10/19/22 [facility] [facility] [address], [address]th [place] [address]- Allergies, Adverse Reactions, Alerts No Known Medication Allergies Immunizations Given and Recorded Vaccine Date Status Refusal Reason [id number] 12y+ bivalent booster vax 04/18/22 Given influenza [...] tablet, 11 Refills, Maintenance, 03/06/22 11:56:00 EDT, [facility]/pharmacy #[id number], Partial fill upon patient request if the prescription is for a schedule II opioid . Start Date: 03/06/22 Stop Date: 03/01/23 Status: Ordered fluticasone 50 mcg/inh nasal spray See Instructions, USE 2 SPRAYS IN EACH NOSTRIL ONCE A DAY DURING ALLERGY SEASON, # 48 mL, 1 Refills, Maintenance, 04/21/22 18:21:00 EST, [facility] STORE 00368, 90, USE 2 SPRAYS IN EACH NOSTRIL ONCE A DAY DURING ALLERGY SEASON, 158, cm, 03/06/22 11:21:00 EDT... Start Date: 04/21/22 Status: Ordered ibuprofen 600 mg oral tablet 600 mg, 1, tablet, By Mouth, Every 6 hours, PRN, Do not take if using Meloxicam, # 40 tablet, Refills 0, Tot. Refills 0, Maintenance, Pain , Mild, 09/25/22 9:42:00 EDT, Route to Pharmacy Electronically, [facility]/pharmacy #[id number], Partial fill upon patient re... Start Date: 09/25/22 Status: Ordered TENS electrode pads TENS electrode [...] tablet, 11 Refills, Maintenance, 06/12/22 11:06:00 EST,Tablet, [facility]/pharmacy #[id number], 158, cm, 06/12/22 9:31:00 EST, [...] Confirmed Active Panic attack Confirmed 2004 Active *[id number] Legal Billing Specialist Rhonda Harrison Confirmed Active Seasonal allergic rhinitis [...] Safety Implantable Status Assigning Authority Unknown Unknown [id number] Unknown 07/23/25 Unknown Unknown Active Unknown Patient Care team information Care Team Personnel Name: Rebecca Louis RN Position: [facility] RN Member Role: Primary Care Nurse Name: Jenni Rosado Position: S RN Member Role: Primary Care Nurse Name: Farhan Kruger MD Position: [facility] Physician - Primary Care Member Role: PCP Address: Address: [address] [place] [address]- Care Team Related Persons Name: MAYLIN DUBOSE Address: home [address] [place] [address] Name: TAMERA BOJORQUEZ Address: [address] [place] [address]
--- OUTSIDE RECORDS SUMMARY | 2023-03-03 14:15 | XMS_ITS | Continuity of Care Document ---
Author Name Unknown Organization [facility] Address [address] [place] [address]- Care Team Providers Care Steel Crane Operator Name Role Phone Saskia GARCIA, Farhan Primary Care Physician Encounter [facility] Date(s): 09/04/22 - 10/04/22 [facility] [address] [place] [address]- Attending Physician: Nenita Sheridan Admitting Physician: Nenita Sheridan Referring Physician: AdmtrNenita Allergies, Adverse Reactions, Alerts No Known Medication Allergies Immunizations Given and Recorded Vaccine Date Status Refusal Reason [id number] 12y+ bivalent booster vax 04/18/22 Given influenza [...] tablet, 11 Refills, Maintenance, 03/06/22 11:56:00 EDT, [facility]/pharmacy #[id number], Partial fill upon patient request if the prescription is for a schedule II opioid . Start Date: 03/06/22 Stop Date: 03/01/23 Status: Ordered fluticasone 50 mcg/inh nasal spray See Instructions, USE 2 SPRAYS IN EACH NOSTRIL ONCE A DAY DURING ALLERGY SEASON, # 48 mL, 1 Refills, Maintenance, 04/21/22 18:21:00 EST, [facility], 90, USE 2 SPRAYS IN EACH NOSTRIL ONCE A DAY DURING ALLERGY SEASON, 158, cm, 03/06/22 11:21:00 EDT... Start Date: 04/21/22 Status: Ordered ibuprofen 600 mg oral tablet 600 mg, 1, tablet, By Mouth, Every 6 hours, PRN, Do not take if using Meloxicam, # 40 tablet, Refills 0, Tot. Refills 0, Maintenance, Pain , Mild, 09/25/22 9:42:00 EDT, Route to Pharmacy Electronically, [facility]/pharmacy #[id number], Partial fill upon patient re... Start [...] tablet, 11 Refills, Maintenance, 06/12/22 11:06:00 EST,Tablet, [facility]/pharmacy #[id number], 158, cm, 06/12/22 9:31:00 EST, Height, [...] Confirmed Active Panic attack Confirmed 2004 Active *[phone] Warehouse Picker Rhonda Harrison Confirmed Active Seasonal allergic rhinitis [...] Safety Implantable Status Assigning Authority Unknown Unknown [id number] 4 Unknown 07/23/25 Unknown Unknown Active Unknown Patient Care team information Care Team Personnel Name: Rebecca Louis RN Position: [facility] RN Member Role: Primary Care Nurse Name: Jenni Rosado Position: S RN Member Role: Primary Care Nurse Name: Farhan Kruger MD Position: [facility] Physician - Primary Care Member Role: PCP Address: Address: [address] [place] [address]- Care Team Related Persons Name: MAYLIN DUBOSE Address: [address] [facility] [place] [address] Name: TAMERA BOJORQUEZ Address: [address] [place] [address]
--- OUTSIDE RECORDS SUMMARY | 2023-03-03 14:15 | XMS_ITS | Continuity of Care Document ---
Author Name Unknown Organization [facility] Address [address], [address] [place] [address]- Care Team Providers Care Head Insulation Board Saw Operator Name Role Phone Saskia GARCIA, Farhan Primary Care Physician Encounter [facility] [place] Date(s): 10/31/22 - 11/30/22 [employer] [address], [address] [place] [address]- Attending Physician: Nenita Sheridan Admitting Physician: Nenita Sheridan Referring Physician: AdmNenita jeffers Allergies, Adverse Reactions, Alerts No Known Medication Allergies Immunizations Given and Recorded Vaccine Date Status Refusal Reason [id number] 12y+ bivalent booster vax 04/18/22 Given influenza [...] mRNA-1273 vaccine 07/03/20 R ecorded tetanus/diphtheria/pertussis, acel(Tdap) 2/5/20 Given tetanus/diphtheria/pertussis, acel(Tdap) 4 03/07/10 Given pneumococcal [...] tablet, 11 Refills, Maintenance, 03/06/22 11:56:00 EDT, [facility]/pharmacy #[id number], Partial fill upon patient request if the prescription is for a schedule II opioid . Start Date: 03/06/22 Stop Date: 03/01/23 Status: Ordered fluticasone 50 mcg/inh nasal spray See Instructions, USE 2 SPRAYS IN EACH NOSTRIL ONCE A DAY DURING ALLERGY SEASON, # 48 mL, 1 Refills, Maintenance, 04/21/22 18:21:00 EST, [facility] STORE 35732, 90, USE 2 SPRAYS IN EACH NOSTRIL [...] tablet, 11 Refills, Maintenance, 06/12/22 11:06:00 EST,Tablet, [facility]/pharmacy #[id number], 158, cm, 06/12/22 9:31:00 EST, Height, [...] 3 Refills, Maintenance, 11/27/22 11:24:00 EDT, [id number], Partial fill upon patient [...] Confirmed Active Panic attack Confirmed 2004 Active *[id number] Wine Pasteurizer Rhonda Harrison Confirmed Active Seasonal allergic rhinitis [...] Safety Implantable Status Assigning Authority Unknown Unknown [id number] Unknown 07/23/25 Unknown Unknown Active Unknown Patient Care team information Care Team Personnel Name: Jenni Rosado Position: [facility] RN Member Role: Primary Care Nurse Name: Farhan Kruger MD Position: [facility] Physician - Primary Care Member Role: PCP Address: Address: [address] [place] [address]- Care Team Related Persons Name: MAYLIN DUBOSE Address: [address] [place] [address] Name: TAMERA BOJORQUEZ Address: [address] [place] [address]
--- OUTSIDE RECORDS SUMMARY | 2023-03-03 14:16 | XMS_ITS | Continuity of Care Document ---
Author Name Unknown Organization [facility] ion Address [address] [place] [id number]- Care Team Providers Care Web Design Instructor Name Role Phone Saskia GARCIA, Farhan Primary Care Physician Encounter [facility] [place] Date(s): 01/14/23 - 02/20/[address] [address]- Encounter Diagnosis Burn-out(Final) - Discharge Disposition: A-D/C Home Attending Physician: Stefan Mullen MD Admitting Physician: Stefan Mullen MD Referring Physician: Stefan Mullen MD Allergies, Adverse Reactions, Alerts No Known Medication Allergies Immunizations Given and Recorded Vaccine Date Status Refusal Reason [id number] 12y+ bivalent booster vax 04/18/22 Given influenza [...] tablet, 11 Refills, Maintenance, 03/06/22 11:56:00 EDT, [facility]/pharmacy #[id number], Partial fill upon patient request if the prescription is for a schedule II opioid . Start Date: 03/06/22 Stop Date: 03/01/23 Status: Ordered fluticasone 50 mcg/inh nasal spray See Instructions, USE 2 SPRAYS IN EACH NOSTRIL ONCE A DAY DURING ALLERGY SEASON, # 48 mL, 1 Refills, Maintenance, 04/21/22 18:21:00 EST, [id number], 90, USE 2 SPRAYS IN EACH NOSTRIL [...] tablet, 11 Refills, Maintenance, 06/12/22 11:06:00 EST,Tablet, [facility]/pharmacy #[id number], 158, cm, 06/12/22 9:31:00 EST, [...] See Instructions, 1 patch, # 24 patch, 11 Refills, Maintenance, 02/19/23 11:10:00 EDT, [facility]/pharmacy#[id number], Partial fill upon patient request if the prescription is for a schedule II opioid drug., 158, cm, 01/09/23 12:54:00 EDT, Height, 84, kg, ... Start Date: 02/19/23 Status: Ordered Problem List Condition Confirmation Course [...] Confirmed Active Panic attack Confirmed 2004 Active *[id number] Finger Lift Operator Rhonda Harrison Confirmed Active Seasonal allergic [...] Safety Implantable Status Assigning Authority Unknown Unknown [id number] Unknown 07/23/25 Unknown Unknown Active Unknown Patient Care team information Care Team Personnel Name: Jenni Rosado Position: [facility] RN Member Role: Primary Care Nurse Name: Saskia GARCIA, Farhan Position: [facility] Physician - Primary Care Member Role: PCP Address: Address: [address] [place] [address]- Care Team Related Persons Name: MAYLIN DUBOSE Address: home [address] [place] [address] Name: TAMERA BOJORQUEZ Address: home [address] [place] [address]
--- OUTSIDE RECORDS SUMMARY | 2023-03-03 14:16 | XMS_ITS | Continuity of Care Document ---
Author Name Unknown Organization [facility] ter Address [address] [place] [id number]- Care Team Providers Care Leasing Coordinator Name Role Phone Saskia GARCIA, Farhan Primary Care Physician Encounter [facility] Date(s): 09/09/22 - 09/10/[address] [address]- Discharge Disposition: A-D/C Home Attending Physician: Rachelle Dash DO Admitting Physician: Rachelle Dash DO Referring Physician: Rachelle Dash DO Allergies, Adverse Reactions, Alerts No Known Medication Allergies Immunizations Given and Recorded Vaccine Date Status Refusal Reason [id number] 12y+ bivalent booster vax 04/18/22 Given influenza [...] GIVEN 5Admin Note: --VIS 02/02/09 GIVEN Medications Acetaminophen Tablet 975 mg, Tablet, By Mouth, 09/10/22 4:00:00 EDT Start Date: 09/10/22 Stop Date: 09/10/22 Status: Completed amitriptyline 25 mg oral tablet 25 mg, [...] tablet, 11 Refills, Maintenance, 03/06/22 11:56:00 EDT, [facility]/pharmacy #[id number], Partial fill upon patient request if the prescription is for a schedule II opioid . Start Date: 03/06/22 Stop Date: 03/01/23 Status: Ordered fluticasone 50 mcg/inh nasal spray See Instructions, USE 2 SPRAYS IN EACH NOSTRIL ONCE A DAY DURING ALLERGY SEASON, # 48 mL, 1 Refills, Maintenance, 04/21/22 18:21:00 EST, [facility] STORE [id number], 90, USE 2 SPRAYS IN EACH NOSTRIL ONCE A DAY DURING ALLERGY SEASON, 158, cm, 03/06/22 11:21:00 EDT... Start Date: 04/21/22 Status: Ordered ibuprofen 600 mg oral tablet 600 mg, 1, tablet, By Mouth, Every 6 hours, PRN, Do not take if re-start Meloxicam, # 40 tablet, Refills 0, Tot. Refills 0, Maintenance, Pain , Mild, 09/10/22 7:52:00 EDT, Route to Pharmacy Electronically, [facility]/pharmacy #[id number], Partial fill upon patient... Start Date: 09/10/22 Status: Ordered MiraLax oral powder for reconstitution = 17 Gm, By Mouth, Daily, PRN Constipation, dissolve in water before taking, # 255 Gm, 0 Refills, Maintenance, 09/09/22 15:56:00 EDT, REC Powder, [id number] Partial fill upon patient requestif the prescription is for a schedule II opioid ayush... Start Date: 09/09/22 Status: Ordered oxyCODONE 5 mg oral tablet 5 mg, 1, tablet, By Mouth, Every 6 hours, PRN, # 20 tablet, Refills 0, Tot. Refills 0, Maintenance,Pain , Severe, 09/10/22 9:08:00 EDT, Route to Pharmacy Electronically, [id number], Partial fill upon patient request, 158, cm, 09/10/22 7:01:00... Start Date: 09/10/22 Status: Ordered OxyCODONE IR Tablet 10 mg, Tablet, By Mouth, Every 4 hours, PRN for Pain , Severe, Routine, 09/09/22 15:58:00 EDT Start Date: 09/09/22 Stop Date: 09/10/22 Status: Discontinued simethicone 80 mg oral tablet, chewable 80 mg, Chew, 3 times a day, PRN, # 36 tablet, Refills 0, Tot. Refills 0, Maintenance, Gas, 09/09/2314:56:00 EDT, Route to Pharmacy Electronically, [facility]/pharmacy #[id number], Partial fill upon patient request if [...] 0 Refills, Maintenance, 09/09/22 15:56:00 EDT, Tablet, [facility]/pharmacy #[id number], Partial fill upon patient request if [...] tablet, 11 Refills, Maintenance, 06/12/22 11:06:00 EST,Tablet, [facility]/pharmacy #[id number], 158, cm, 06/12/22 9:31:00 EST, Height, [...] Confirmed Active Panic attack Confirmed 2004 Active *[id number] Galvanizer Zinc Rhonda Harrison Confirmed Active Seasonal allergic rhinitis [...] to oldest [Reference Range]: 1 2 3 Height 158 cm (09/10/22 7:01 AM) 158 cm (09/10/22 4:25 AM) 158 cm (09/09/22 8:16 PM) Weight 79.3 kg (09/09/22 12:16 PM) 79.3 kg (09/04/22 3:36 PM) Oxygen Saturation [94-100 %] 95 % (09/10/22 7:01 AM) 94 % (09/10/22 4:25 AM) 95 % (09/09/22 8:16 PM) Pulse Rate [55-90 bpm] 67 bpm (09/10/22 7:01 AM) 65 bpm (09/10/22 4:25 AM) 78 bpm (09/09/22 8:16 PM) Body Mass Index [18.5-24.99 kg/m2] 31.77 kg/m2 *>HHI* (09/09/22 12:16 PM) 31.77 kg/m2 *>HHI* (09/04/22 3:36 PM) Blood Pressure [90-138/55-84 mm Hg] 124/63mm Hg (09/10/22 7:01 AM) 126/60mm Hg (09/10/22 4:25 AM) 114/58mm Hg (09/09/22 8:16 PM) Respiratory Rate [16-30 br/min] 16 br/min (09/10/22 7:26 AM) 16 br/min (09/10/22 7:01 AM) 18 br/min (09/10/22 5:46 AM) Temperature [96.8-100.4 DegF] 98.3 DegF (09/10/22 7:01 AM) 98.5 DegF (09/10/22 4:25 AM) 97.4 DegF (09/09/22 8:16 PM) Mode of Delivery (Oxygen) Room air (09/10/22 7:01 AM) Room air (09/10/22 4:25 AM) Room air (09/09/22 8:16 PM) Blood pressure sites Arm, right (09/10/22 4:25 AM) Arm, right (09/09/22 8:16 PM) Arm, right (09/09/22 6:10 PM) Temperature Route Oral (09/10/22 7:01 AM) Oral (09/10/22 4:25 AM) Oral (09/09/22 8:16 PM) Dry Weight 81.6 kg (09/09/22 12:16 PM) 79.3 kg (09/04/22 3:36 PM) Weight Obtained Via Patient/family state d (09/04/22 3:36 PM) Dry Weight Obtained Via Standing scale (09/09/22 12:16 PM) Patient/family stated (09/04/22 3:36 PM) Social History Social History Type Response Smoking Status Never (less than 100 in lifetime) entered on: 05/17/20 Sex Implantable Device List Procedure Provider Procedure Date Device Type Site Transvaginal Tape Cysto Melina Gtz DO 09/09/22 Unknown Urethra Device Identifier Serial Number Lot or Batch Number Manufacturing Date Expiration Date Distinct Identification Code MRI Safety Implantable Status Assigning Authority Unknown Unknown [id number] Unknown 07/23/25 Unknown Unknown Active Unknown Hospital Progress note * Junie GARCIA, Spring Pennington: PERFORM Event Display: Progress Note Hospital Authored Date: [id number] Patient: ??TENA GUADALUPE ? Age:??52 Years?Sex:??Female?:??1970?? Subjective Patient is resting comfortably and feeling well. States her pain is well controlled. She is ambulating. Nicole out and backfill void trial started about an hour ago, with 125cc voided thus far; pt plans to void again right now.??Tolerating regular diet.? Denies fevers, chills,??dizziness,?? chest pain, shortness of breath,??abdominal pain, nausea, vomiting, and calf tenderness. Physical Exam Vitals & Measurements T:??98.3?F ?? HR:??83(Monitored)?? MN:??67?? RR:??16?? BP:??124/63?? SpO2:??95%?? HT:??158??cm?? WT:??79.3??kg?? BMI:??31.77?Constitutional: Well-developed, well-nourished, no acute distress?Lungs: Clear to auscultation bilaterally, unlabored breathing?Cardiovascular: Regular rate and rhythm.?Abdomen/GI: soft, appropriately tender, mildly distended, no guarding or rebound tenderness; incisions clean, dry, intact; no evidence of induration/erythema ?Gynecologic: Minimal blood on pad ?Extremities: Equal bilaterally, no calf tenderness ?Skin: No rash or jaundice ?Neurological/Psychiatric:??appropriate appearance, mood and affect Assessment/Plan Assessment:??52yo POD1 s/p joint case for TLH with BS by Dr. Dash for pelvic pain, dysmenorrhea andsuspected adenomyosis, and TVT, cysto by Dr. Gtz for CHITO. Backfill void trial is ongoing. Overall, meeting postoperative milestones. ?? Stress incontinence, female (N39.3):? TVT in place [p] Backfill void trial Appropriate for discharge from Urogyn perspective ? S/P hysterectomy (Z90.710):? Remainder of care per primary team ?? Patient discussed with Dr. Gtz, attending physician Intake and Output Intake and Output Results?? This visit (24 hour periods starting at 07:00 EDT)? 09/10/22 *?? 09/09/22?? 09/08/22?? Total Summary?Intake mL?? --?? --?? --?Output mL?? --?? 1,425?? --?Fluid Balance ?? --?? -1,425?? --?? Intake (0)? Output (2)?Urine Catheter mL?? --?? 1,000?? --?Urine Voided mL?? --?? 425?? --?Total?? --?? 1,425?? --?? Counts (2)?Urine Catheter mL?? --?? 1,000?? --?Urine Voided mL?? --?? 425?? --? * This column has not completed the indicated time period.?? Note * Heriberto PIERRE, Rebecca: PERFORM Event Display: Discharge/Transfer Note Hospital Authored Date: [id number] Nursing Discharge Note Entered On: 09/10/2022 9:25 EDT Performed On: 09/10/2022 9:25 EDT by Rebecca Louis RN Nursing Discharge Note 2 Discharge Time : 09/10/2022 9:45 EDT Rebecca Louis RN - 09/10/2022 10:24 EDT Discharge Level of Care at Discharge : Home/Alf/Foster Care Patient Left Unit Via : Wheelchair Patient Accompanied Off Unit with : Significant other DC Instructions Provided & Signed by Pt : Yes Patient Understands D/C Instructions : Yes Patient Instructions Discharge Signed : Yes Did Pt have Specialty Bed or Wound Vac : No Rebecca Louis RN - 09/10/2022 9:25 EDT * Leilani Li DO: PERFORM Event Display: Discharge/Transfer Note Hospital Authored Date: [id number] Patient: ??ANAYELI TENA ? Age:??52 Years?Sex:??Female?:??1970?? Admit Date Admission Date: 09/09/2022 Discharge Date 09/10/22 Discharge Diagnoses S/P hysterectomy, 09/10/2022 Stress incontinence, female, 09/10/2022 [facility] Course 52 yo admitted following scheduled surgery. She underwent an uncomplicated total laparoscopic hysterectomy with bilateral salpingectomy and cystoscopy with Dr. Dash for dysmenorrhea and an uncomplicated midurethral sling for stress urinary incontinence with Dr. Gtz. Her postoperative course was uncomplicated. She passed her void trial following nicole removal. She was discharged on POD1 after meeting all appropriate post-operative millstones. Objective/Physical Exam on Day of Discharge Vitals & Measurements T:??98.3?F ?? HR:??83(Monitored)?? MN:??67?? RR:??16?? BP:??124/63?? SpO2:??95%?? HT:??158??cm?? WT:??79.3??kg?? BMI:??31.77?? Constitutional:??Denies fever or chills, weakness, fatigue HEENT:??Denies headache, dizziness Cardiovascular: Denies??chest pain or palpitations. Respiratory:??Denies shortness of breath, cough Gastrointestinal: Denies abdominal pain, N/V, C/D MANAGER PROCESS IMPROVEMENT: Denies vaginal pain, discharge, heavy bleeding, lesions Ext: Denies LE swelling or calf pain Assessment/Plan Assessment:??POD1 s/p uncomplicated TLH-BS, Cysto (Ekta) for dysmenorrhea??and Midurethral Sling for stress urinary incontinence (Tresa). She is doing well this morning. She passed void trial and is meeting all appropriate postoperative milestones. Stable for discharge with outpatient follow-up. ?? Discussed with Dr. Dash ?? S/P hysterectomy (Z90.710):??Pain : Ibu/Tyl/Oxy; scripts sent Bowel regimen:??Miralax,??Simethicone Regular diet s/p nicole, voiding spontaneously. Encourage ambulation, Incentive spirometer use Discharge Outpatient follow-up with Dr. Dash ?? Stress incontinence, female (N39.3):??- s/p midurethral sling placement (Mirta) - Voiding spontaneously s/p nicole ?? Pending Results Final pathology Future Appointments 2022 9:00 AM EDT ?? With: Rachelle Dash DO Where: [address] [address] [phone] 2022 11:40 AM EDT ?? With: Melina Gtz DO Where: [facility] [address] [place] [address]- 2022 9:40 AM EDT ?? With: Rachelle Dash DO Where: [address] [address]- [phone] Procedures Performed This Visit Transvaginal Tape Cysto Hysterectomy Total Laparoscopic with Hieu, Bilateral Cystoscopy Discharge Medications ???Acetaminophen (Tylenol Extra Strength 500 mg oral tablet)???BusPIRone (busPIRone 15 mg oral tablet)???Cholecalciferol (Vitamin D3 1000 intl units oral tablet)???Clonazepam (clonazePAM 0.5 mg oral tablet)???Cyanocobalamin (Vitamin B12 1000 mcg oral tablet)???Durable Medical Equipment (TENS electrode pads)???Ferrous Gluconate (ferrous gluconate 240 mg oral tablet)???Fluticasone Nasal (fluticasone 50 mcg/inh nasal spray)???Ibuprofen (ibuprofen 600 mg oral tablet)???Multivitamin With Minerals (Centrum Women 50 Plus Multigummies)???Oxycodone (oxyCODONE 5 mg oral tablet)???Polyethylene Glycol 335 0 (MiraLax oral powder for reconstitution)???Simethicone (simethicone 80 mg oral tablet, chewable)???Tramadol (traMADol 50 mg oral tablet)???Trazodone (trazodone 100 mg oral tablet)???Venlafaxine (venlafaxine 150 mg oral capsule, extended release)???amiTRIPTYLINE (amitriptyline 25 mg oral tablet) Stop taking these medications ???Meloxicam (meloxicam 15 mg oral tablet)???PEG Electrolyte Solution(NuLYTELY with Flavor Packs oral powder for reconstitution) Immunizations during Hospitalization Vaccine Date Status [id number] 12y+ bivalent booster vax 04/18/2022 Given influenza virus vaccine, inactivated 04/18/2022 Given SARS-CoV-2 (COVID-19) mRNA BNT-162b2 vac 03/07/2021 Given influenza virus vaccine, inactivated 03/06/2021 Given SARS-CoV-2 (COVID-19) mRNA-1273 vaccine 07/31/2020 Recorded SARS-CoV-2 (COVID-19) mRNA-1273 vaccine 07/03/2020 Recorded influenza virus vaccine, inactivated 02/01/2020 Given tetanus/diphtheria/pertussis, acel(Tdap) 06/08/2019 Given influenza virus vaccine, inactivated 06/08/2019 Given pneumococcal 23-valent vaccine 03/29/2018 Given influenza virus vaccine, inactivated 03/29/2018 Given influenza virus vaccine, inactivated 05/07/2016 Given Measles/Mumps/Rubella Virus Vaccine 05/07/2016 Given influenza virus vaccine, inactivated 04/05/2014 Given influenza virus vaccine, inactivated 02/04/2012 Given VIS 11/26/10 GIVEN tetanus/diphtheria/pertussis, acel(Tdap) 03/07/2010 Given VIS 03/21/08 GIVEN influenza virus vaccine, inactivated 03/07/2010 Given VIS 12/11/09 GIVEN influenza virus vaccine, inactivated 05/28/2009 Given VIS 12/12/08 given influenza virus vaccine, live 05/28/2009 Given --VIS 02/02/09 GIVEN Patient Education Titles Surgery Medical Daystay Surgical Overnight Discharge Instructions?? Follow-Up Appointments Added Follow Up ?Time Frame ?Comments Rachelle Kruger Patient Instructions ??Call your doctor if: you note fever of 100.4 or greater, heavy vaginal bleeding, foul-smelling vaginal discharge, difficulty or burning with urination, nausea and vomiting with inability to tolerate food, pain not controlled by your prescribed medications, redness/swelling/drainage at incision(s), shortness of breath or chest pain. ??- Do not drive while taking narcotics. Do not drive until cleared by your doctor. ??- Avoid lifting anything 10bs or greater for 2 weeks/cleared by doctor. ??- Do not put anything in the vagina. No intercourse, tampons, or douching until cleared by doctor. ??- Stairs are OK but avoid multiple trips and go slowly. ??- Walk as often as you are able. ??- Continue your stool softeners (examples: colace/docusate, senna, miralax) until no longer taking narcotics and stools are regular. ??- Shower as usual after 24 hours. Remove Steri-Strips when they start to peel off, or after 5 days. Do not scrub the incision. Pat the skin dry. * Rachelle Dash DO: PERFORM Event Display: Discharge/Transfer Note Hospital Authored Date: [id number] Attending Attestation: I have seen and evaluated this patient.?? I have discussed the case and its management with the resident and agree with the findings and plan as documented in the resident???s note. * Rebecca Louis RN: PERFORM Event Display: Patient Education/Instruction Authored Date: [id number] Inpatient Adult Discharge Instructions [address] [address] Name: TENA GUADALUPE : 1970 Visit: 09/09/2022 10:59:00 Current Date: 09/10/2022 09:26 Account: [id number] Inpatient Adult Discharge Instructions We would like to thank you for allowing us to assist you with your healthcare needs. The following includes patient education materials and information regarding your injury/illness. Our entire staffstrives to provide an excellent experience for our patients and their families. PLEASE ENSURE YOU FOLLOW-UP PER THE INSTRUCTIONS BELOW! ?? YOUR OPINION IS IMPORTANT TO US! Please complete the survey you may receive by mail or email. Your feedback will be used to make improvements to the healthcare experiences of our patients and their families. Surveys are administered by [employer] ?? If further treatment with your primary care physician or another doctor is recommended, it is important for you to keep the appointment. Call your primary care physician or return to the Emergency Department immediately if your condition worsens, fails to improve, or new symptoms develop. If you need to find a doctor, you can call [facility] for a referral at [phone] or toll free at [phone] or log in to [email or web address].. ?? You can view and manage your care through the patient portal or by using a health care kayla of your choosing. [employer] is a website that allows you to securely view your medical information including your hospital discharge summary, office visit summaries, medications and follow-up visits. You can also request appointments, renew medications, and request access to your medical information using a health care kayla of your choosing, or just ask a question. You can enroll at [email or web address] or register during your next office visit. You have been discharged from [facility], Patient Care Unit: S1. If you have any questions regarding these instructions after you leave, please call us and we will be happy to assist you. [facility] Your Care Team Attending Physician Rachelle Dash DO Consulting Providers Rachelle Dash DO Discharging Providers Leilani Li DO Reason for Your Visit DYSMENORRHEA, SUSPECTED ADENOMYOSIS Your Diagnosis S/P hysterectomy Stress incontinence, female Tests Performed Below is a partial list of the tests performed during your hospitalization. You may have had other tests and procedures not included in this list. Please discuss all test results with your provider. CBC Creatinine Type and Screen Primary Care Provider Farhan Kruger MD Advance Directive . Discharge Vitals Temperature: 98.3 DegF Height: 158 cm Pulse Rate: 67 bpm Weight: 79.3 kg Respiratory Rate: 16 br/min Body Mass Index:??31.77 kg/m2??Critical Systolic Blood Pressure: 124 mm Hg Body surface area: 1.87 Diastolic Blood Pressure: 63 mm Hg ?? Oxygen Saturation: 95 % ?? Studies Pending All tests and labs ordered during this hospital stay have been completed unless listed below. Please discuss all pending results with your provider listed above in these instructions. ?? Pathology Tissue Request ([id number]) What to do next Instructions From Your Doctor ??Call your doctor if: you note fever of 100.4 or greater, heavy vaginal bleeding, foul-smelling vaginal discharge, difficulty or burning with urination, nausea and vomiting with inability to tolerate food, pain not controlled by your prescribed medications, redness/swelling/drainage at incision(s), shortness of breath or chest pain. ??- Do not drive while taking narcotics. Do not drive until cleared by your doctor. ??- Avoid lifting anything 10bs or greater for 2 weeks/cleared by doctor. ??- Do not put anything in the vagina. No intercourse, tampons, or douching until cleared by doctor. ??- Stairs are OK but avoid multiple trips and go slowly. ??- Walk as often as you are able. ??- Continue your stool softeners (examples: colace/docusate, senna, miralax) until no longer taking narcotics and stools are regular. ??- Shower as usual after 24 hours. Remove Steri-Strips when they start to peel off, or after 5 days. Do not scrub the incision. Pat the skin dry. Discharge Orders Instructions from your Care Team See attached discharge instructions ?? Call MD office for appointment, usually scheduled 1-2 weeks after surgery ?? Can remove bandaids in 24 hrs then can shower ?? Prescriptions Eprescribed Scheduled Follow-Up Appointments 2022 9:00 AM EDT ?? With: Rachelle Dash DO Where: [address] [address] [phone] 2022 11:40 AM EDT ?? With: Melina Gtz DO Where: [facility] [address] [place] [address] 2022 9:40 AM EDT ?? With: Rachelle Dash DO Where: [address] [address]- [phone] You Need to Schedule the Following Appointments Follow Up with??Rachelle Dash When?? Where: [address] [place] [address] [employer] [place] [address]- [facility] (1) Follow Up with??Farhan Kruger When??In 0 days Discharge Medications TENA GUADALUPE :1970 Visit Date:09/09/2022 Medications: Please continue your medications until treatment is completed or stopped by your provider. Medications not listed below should be discontinued. Discuss any questions related to medications with your provider. What How Much When Instructions Next Dose Changed Ibuprofen (ibuprofen 600 mg oral tablet) 1 tab(s) Oral Every 6 hours as needed for Pain , Mild Do not take if re-start Meloxicam ?? Pickup at [facility]/pharmacy #[id number] cuando lo?? necesites Changed Polyethylene Glycol 3350 (MiraLax oral powder for reconstitution) 17 gram Oral Daily as needed for Constipation dissolve in water before taking ?? Pickup at [facility]/pharmacy #[id number] cuando lo?? necesites Unchanged Acetaminophen (Tylenol Extra Strength 500 mg oral tablet) 2 tab(s) Oral Every 6 hours as needed for for pain Pickup at [facility]/pharmacy #[id number] cuando lo?? necesites Unchanged amiTRIPTYLINE (amitriptyline 25 mg oral tablet) 1 tab(s) Oral Daily at Bedtime Given ??to ??rheuma, ??Dr ??Fadi ?? a la nocgiulia trent Unchanged BusPIRone (busPIRone 15 mg oral tablet) 2 tab(s) Oral 3 times a day given by ??psych, Fatmata ??Kongo ?? con almuerzo hoy Unchanged Cholecalciferol (Vitamin D3 1000 intl units oral tablet) 1 tab(s) Oral Daily manana Unchanged Clonazepam (clonazePAM 0.5 mg oral tablet) 1 tab(s) Oral Twice a day a la noche, hoy Unchanged Cyanocobalamin (Vitamin B12 1000 mcg oral tablet) 1 tab(s) Oral Daily manana Unchanged Durable Medical Equipment (TENS electrode pads) See instructions 1 box use as directed for back pain Dx Chronic myosfacial back pain 1 box of 4 ?? Unchanged Ferrous Gluconate (ferrous gluconate 240 mg oral tablet) 1 tab(s) Oral Daily Duration: 30 Days Take with juice ??discontinue ??ferrous ??sulfate ?? manana Unchanged Fluticasone Nasal (fluticasone 50 mcg/ inh nasal spray) See instructions USE 2 SPRAYS IN EACH NOSTRIL ONCE A DAY DURING ALLERGY SEASON ?? Unchanged Multivitamin With Minerals (Centrum Women 50 Plus Multigummies) 1 tab(s) Oral Daily in the morning manana Unchanged Oxycodone (oxyCODONE 5 mg oral tablet) 1 tab(s) Oral Every 6 hours as needed for Pain , Severe Pickup at [facility]/pharmacy #[id number] cuando lo?? necesites Unchanged Simethicone (simethicone 80 mg oral tablet, chewable) 80 Milligram Chew 3 times a day as needed for Gas Pickup at [facility]/pharmacy #[id number] cuando lo?? necesites Unchanged Tramadol (traMADol 50 mg oral tablet) 1 tab(s) Oral Every 12 hours as needed for Pain , Moderate TOME KARAN TABLETA POR V?A ORAL DOS VECES AL D?A CUANDO SEA NECESARIO PARA EL DOLOR (NEED INS) ?? cuando lo?? necesites Unchanged Trazodone (trazodone 100 mg oral tablet) 1-1.5 tablet Oral Daily at Bedtime given by Fatmata stokes ??Kongo ?? giulia ortiz Unchanged Venlafaxine (venlafaxine 150 mg oral capsule, extended release) 1 capsule Oral Daily given by Fatmata stokes ??Kongo ?? arlette Pharmacy Information [facility]/pharmacy #[id number]: [address], [place] [id number] [phone] ?? What How Much When Comments Stop Taking Meloxicam (meloxicam 15 mg oral tablet) 1 tab(s) Oral Daily Given by edelmira Lopez ??Tavon Aponte ?? Stop Taking PEG Electrolyte Solution (NuLYTELY with Flavor Packs oral powder for reconstitution) See instructions Drink 240mL every 15-20 minutes until first half is gone. ??Repeat 6 hours prior to procedure. ?? Test Results Below is a partial list of the most recent Laboratory test results done prior to this discharge. You may have had other tests and procedures not included in this list. Please discuss all test resultswith your provider. Est Creatinine Clearance - 67.16 mL/min (09/09/2022) CBC (09/09/2022) ???WBC - 5.0 k/mm3???RBC - 3.84 m/mm3???Hgb - 11.4 Gm/dL???Hct - 35.5 %???MCV - 92.4 femtoliters???MCH - 29.7 pg???MCHC - 32.1 g/dL???Platelet Count - 278 k/mm3???RDW-SD - 49.2 femtoliters???MPV - 10.4 femtoliters???Nucleated RBC (Automated) - 0.0 #/100 WBC'S???Abs. NRBC - 0.0 k/mm3 Creatinine (09/09/2022) ???Creatinine-Blood - 0.8 mg/dL???Estimated GFR Creatinine - 95 ML/MIN/1.73 M2 Type and Screen (09/09/2022) ???Blood Type - A Positive???Antibody Screen - Negative Allergies (NKA means No Known Allergies) No Known Medication Allergies Problems Active Problems??(20) *[phone] Galvanizer Zinc Rhonda Harrison?? Alcohol abuse?? Anxiety depression?? Binge-eating disorder, moderate?? Cervical arthritis?? Chronic back pain?? Encounter for IUD insertion?? Encounter for Liletta IUD insertion?? Fibromyalgia?? Gastritis?? Hypercholesterolemia?? Insomnia?? Iron deficiency anemia?? Migraines?? Obese class I?? Obesity?? Panic attack?? Seasonal allergic rhinitis?? Varicella immune?? Vitamin D deficiency?? Education Materials Below is the list of Educational Leaflet Providered with your Discharge Instructions. Surgery Medical Daystay Surgical Overnight Discharge Instructions?? Valuables and Belongings I fully understand and agree that [facility] accepts no responsibility for all my personal property including clothing, toilet articles, radios, jewelry, dentures, hearing aids, rings, money, or any other property that is in my possession or is brought to me after admission. I understand certain valuables may be placed in a hospital safe for a short period of time. I understand that the hospital is not liable for loss or damage due to accident, fire, or other natural occurrence while said property is in the safe. I accept full responsibility for any personal property that I keep with me, and will not hold the hospital responsible in case of loss or disappearance. I acknowledge that i have been encouraged to send valuables and belongings home. ?? Review of Valuable and Belonging List: With patient Date for Pt to Sign Valuables/Belongings: 09/09/22 18:10:00 ?? Other Discharge Information ? Pulmonary Rehab Status?? Pulmonary Rehab Discharge Status?? Respiratory Rate: 16 br/min ? Common Emergency Awareness Tips IS IT A STROKE? Act FAST and Check for these signs: FACE Does the face look uneven? ARM Does one arm drift down? SPEECH Does their speech sound strange? TIME Call at any sign of stroke ?? Heart Attack Signs Chest discomfort: Most heart attacks involve discomfort in the center of the chest and lasts more than a few minutes, or goes away and comes back. It can feel like uncomfortable pressure, squeezing, fullness or pain. Discomfort in upper body: Symptoms can include pain or discomfort in one or both arms, back, neck, jaw or stomach. Shortness of breath: With or without discomfort. Other signs: Breaking out in a cold sweat, nausea, or lightheaded. Remember, MINUTES DO MATTER. If you experience any of these heart attack warning signs, call to get immediate medical attention! ?? Smoking can increase your chances of developing chronic health problems and can cause harmful effects to other family members in your house. If you smoke, you are strongly encouraged to quit. Please call [facility] Quizine Link at [phone] or 1-793-071-FATASC ([phone]) or log in to [email or web address] for referrals to smoking cessation programs. ?? 395 Suicide & Crisis Lifeline is available 24/11 if you or someone you know needs to find a reason to keep living. By calling 475 you'll be connected to a skilled, trained counselor at a crisis center in your area. INPATIENT DISCHARGE INSTRUCTIONS SIGNATURE NELIA GUADALUPEJANETENA Location:[facility] Registration Date and Time:09/09/2022 10:59 EDT Primary Care Physician: Saskia GARCIA, [facility], I TENA GUADALUPE, have received the above patient education materials/instructions and have verbalized understanding. If ambulance or transport services are being used I further acknowledge beinggiven a choice of service. ?? If you need to contact me, please call me at this number: . Patient/Manager Of Sustainability Name: Patient/Manager Of Sustainability Signature: Relationship to Patient: Witness Name/Signature: Date: * Shantel Cardona RN: PERFORM, SIGN, VERIFY Event Display: Patient Education Handout Authored Date: * Shantel Cardona RN: PERFORM Event Display: Patient Education Leaflets Authored Date: [id number] Surgery Medical Daystay Surgical Overnight Discharge Instructions ?? 295 Medical Daystay/Surgical Overnight Discharge Instructions ? Since your coordination and judgment may be altered by medication and/or anesthesia, a responsible adult must drive you home from the hospital. ? If you have received medication for pain or sedation while under our care, you should not drive, operate machinery, drink alcohol, or sign any legal documents for 24 hours.?? You should have someone with you at home tonight. ? Remain at home the day of discharge.?? You may be up and about unless otherwise instructed by your physician. ? You may resume your daily prescription medication schedule.?? Any depressant medication should be avoided for 24 hours unless otherwise instructed by your surgeon or anesthesiologist. ? Call your physician for a follow-up appointment.? If you experience unusual or severe pain not relied by your pain medication, excessive bleedingor drainage, persistent nausea and vomiting, excessive swelling or redness, foul odor from incisionsite or fever over 100.6F, you need to call your physician. ? A follow-up phone call by a nurse will be made the day after your procedure.?? If you have stayed with us over night, you will not be receiving a follow-up phone call. ? Nausea and vomiting are a common side effect of prescription pain medication.?? We recommend that pills are not taken on an empty stomach.?? While taking any prescription pain medication you should not drive or drink alcohol. ? Patient Care team information Care Team Personnel Name: Rebecca Louis RN Position: [facility] RN Member Role: Primary Care Nurse Name: Jenni Rosado Position: S RN Member Role: Primary Care Nurse Name: Farhan Kruger MD Position: [facility] Primary Care Physician Member Role: PCP Address: Address: [address] [place] [address]- Care Team Related Persons Name: MAYLIN DUBOSE Address: home [address] [place] [address] Name: TAMERA BOJORQUEZ Address: home [address] [place] [address]
--- OUTSIDE RECORDS SUMMARY | 2023-03-03 14:16 | XMS_ITS | Continuity of Care Document ---
Author Name Unknown Organization [facility] ion Address [address] [place] [id number]- Care Team Providers Care Sr Technical Sales Consultant Name Role Phone Saskia GARCIA, Farhan Primary Care Physician Encounter [facility] Date(s): 01/21/23 - 02/20/[address] [address] Attending Physician: Nenita Sheridan Admitting Physician: Admtr, Nenita Referring Physician: Admtr, Ar8 Allergies, Adverse Reactions, Alerts No Known Medication Allergies Immunizations Given and Recorded Vaccine Date Status Refusal Reason [id number] 12y+ bivalent booster vax 04/18/22 Given influenza [...] tablet, 11 Refills, Maintenance, 03/06/22 11:56:00 EDT, [facility]/pharmacy #[id number], Partial fill upon patient request if the prescription is for a schedule II opioid . Start Date: 03/06/22 Stop Date: 03/01/23 Status: Ordered fluticasone 50 mcg/inh nasal spray See Instructions, USE 2 SPRAYS IN EACH NOSTRIL ONCE A DAY DURING ALLERGY SEASON, # 48 mL, 1 Refills, Maintenance, 04/21/22 18:21:00 EST, [facility] STORE [id number], 90, USE 2 SPRAYS IN EACH NOSTRIL [...] 150 mg, By Mouth, Daily, given by psych, Fatmata Person, # 30 capsule, 0 Refills, Maintenance, 03/06/21 [...] patch, 11 Refills, Maintenance, 02/19/23 11:10:00 EDT, [facility]/pharmacy#[id number], Partial fill upon patient request if the [...] Confirmed Active Panic attack Confirmed 2004 Active *[id number] Flash Drier Operator Rhonda Harrison Confirmed Active Seasonal allergic [...] Safety Implantable Status Assigning Authority Unknown Unknown [id number] Unknown 07/23/25 Unknown Unknown Active Unknown Patient Care team information Care Team Personnel Name: Jenni Rosado Position: [facility] RN Member Role: Primary Care Nurse Name: Saskia GARCIA, Farhan Position: [facility] Physician - Primary Care Member Role: PCP Address: Address: [address] [place] [address]- Care Team Related Persons Name: MAYLIN DUBOSE Address: [address] [place] [address] Name: TAMERA BOJORQUEZ Address: [address] [place] [address]
--- OUTSIDE RECORDS SUMMARY | 2023-03-03 14:16 | XMS_ITS | Continuity of Care Document ---
Author Name Unknown Organization [facility] Address [address] [place] [address]- Care Team Providers Care Destination Imagination Coordinator Name Role Phone Saskia GARCIA, Farhan Primary Care Physician Encounter [facility] Date(s): 10/16/22 - 11/15/22 [facility] [address]- [place] Allergies, Adverse Reactions, Alerts No Known Medication Allergies Immunizations Given and Recorded Vaccine Date Status Refusal Reason [id number] 12y+ bivalent booster vax 04/18/22 Given influenza [...] 11 Refills, Maintenance, 03/06/22 11:56:00 EDT, [facility]/pharmacy #[id number], Partial fill upon patient request if the prescription is for a schedule II opioid . Start Date: 03/06/22 Stop Date: 03/01/23 Status: Ordered fluticasone 50 mcg/inh nasal spray See Instructions, USE 2 SPRAYS IN EACH NOSTRIL ONCE A DAY DURING ALLERGY SEASON, # 48 mL, 1 Refills, Maintenance, 04/21/22 18:21:00 EST, [facility] [id number], 90, USE 2 SPRAYS IN EACH NOSTRIL ONCE A DAY DURING ALLERGY SEASON, 158, cm, 03/06/22 11:21:00 EDT... Start Date: 04/21/22 Status: Ordered ibuprofen 600 mg oral tablet 600 mg, 1, tablet, By Mouth, Every 6 hours, PRN, Do not take if using Meloxicam, # 40 tablet, Refills 0, Tot. Refills 0, Maintenance, Pain , Mild, 09/25/22 9:42:00 EDT, Route to Pharmacy Electronically, [facility]/pharmacy #[id number], Partial fill upon patient re... Start Date: 09/25/22 Status: Ordered oxybutynin 5 mg/24 hours oral tablet, extended release 1 tablet = 5 mg, By Mouth, Daily at bedtime, # 30 tablet, 3 Refills, Maintenance, 10/24/22 15:08:00EDT, ER Tablet, [facility]/pharmacy #[id number], Partial fill upon patient request if [...] patch, 3 Refills, Maintenance, 11/13/22 10:25:00 EDT, [id number], Partial fill upon patient [...] Confirmed Active Panic attack Confirmed 2004 Active *[id number] Debt Recovery Officer Rhonda Harrison Confirmed Active Seasonal allergic rhinitis [...] Safety Implantable Status Assigning Authority Unknown Unknown [id number] Unknown 07/23/25 Unknown Unknown Active Unknown Patient Care team information Care Team Personnel Name: Rebecca Louis RN Position: [facility] RN Member Role: Primary Care Nurse Name: Jenni Rosado Position: [facility] RN Member Role: Primary Care Nurse Name: Farhan Kruger MD Position: [facility] Physician - Primary Care Member Role: PCP Address: Address: [address] [place] [address]- Care Team Related Persons Name: MAYLIN DUBOSE Address: [address] [place] [address] Name: TAMERA BOJORQUEZ Address: [address] [place] [address]
--- OUTSIDE RECORDS SUMMARY | 2023-03-03 14:16 | XMS_ITS | Continuity of Care Document ---
Author Name Unknown Organization [facility] ter Address [address] [place] [id number]- Care Team Providers Care Preparation Supervisor Freezing Name Role Phone Saskia GARCIA, Farhan Primary Care Physician Encounter [facility] Date(s): 10/10/22 - 10/11/[address] [address] Discharge Disposition: A-D/C Home Attending Physician: Martha Hawkins DO Admitting Physician: Martha Hawkins DO Referring Physician: Martha Hawkins DO Allergies, Adverse Reactions, Alerts No Known Medication Allergies Immunizations Given and Recorded Vaccine Date Status Refusal Reason [id number] 12y+ bivalent booster vax 04/18/22 Given influenza [...] tablet, 11 Refills, Maintenance, 03/06/22 11:56:00 EDT, [facility]/pharmacy #[id number], Partial fill upon patient request if the prescription is for a schedule II opioid . Start Date: 03/06/22 Stop Date: 03/01/23 Status: Ordered fluticasone 50 mcg/inh nasal spray See Instructions, USE 2 SPRAYS IN EACH NOSTRIL ONCE A DAY DURING ALLERGY SEASON, # 48 mL, 1 Refills, Maintenance, 04/21/22 18:21:00 EST, [facility] STORE [id number], 90, USE 2 SPRAYS IN EACH NOSTRIL ONCE A DAY DURING ALLERGY SEASON, 158, cm, 03/06/22 11:21:00 EDT... Start Date: 04/21/22 Status: Ordered ibuprofen 600 mg oral tablet 600 mg, 1, tablet, By Mouth, Every 6 hours, PRN, Do not take if using Meloxicam, # 40 tablet, Refills 0, Tot. Refills 0, Maintenance, Pain , Mild, 09/25/22 9:42:00 EDT, [id number] Partial fill upon patient re... Start Date: 09/25/22 Status: Ordered Macrobid macrocrystals-monohydrate 100 mg oral capsule 1 capsule = 100 mg, By Mouth, 2 times a day, for 5 days, # 10 capsule, 0 Refills, Acute 10/15/22 23:09:00 EDT, 10/10/22 23:09:00 EDT, Capsule[id number] Partial fill upon patient request ifthe [...] 12 hours, PRN Pain , Moderate, TOME FRANCISCO TABLETA POR V?A ORAL DOS VECES AL [...] mg, By Mouth, Daily, given by Fatmata stokeso, # 30 capsule, 0 Refills, Maintenance, 03/06/21 [...] Confirmed Active Panic attack Confirmed 2004 Active *[id number] Colorer Rhonda Harrison Confirmed Active Seasonal allergic rhinitis [...] recent to oldest [Reference Range]: 1 2 Height 158 cm (10/10/22 4:23 PM) Weight 80.3 kg (10/10/22 4:23 PM) Oxygen Saturation [94-100 %] 100 % (10/10/22 9:58 PM) 100 % (10/10/22 4:23 PM) Pulse Rate [55-90 bpm] 58 bpm (10/10/22 4:23 PM) Body Mass Index [18.5-24.99 kg/m2] 32.17 kg/m2 *>HHI* (10/10/22 4:23 PM) Blood Pressure [90-138/55-84 mm Hg] 95/5 6mm Hg (10/10/22 9:58 PM) 106/67mm Hg (10/10/22 4:23 PM) Respiratory Rate [16-30 br/min] 18 br/mi n (10/10/22 9:58 PM) 18 br/min (10/10/22 4:23 PM) Temperature [96.8-100.4 DegF] 98.3 DegF (10/10/22 9:58 PM) 98.3 DegF (10/10/22 4:23 PM) Mode of Delivery (Oxygen) Room air (10/10/22 4:23 PM) Blood pressure sites Arm, left (10/10/22 9:58 PM) Arm, right (10/10/22 4:23 PM) Temperature Route Oral (10/10/22 9:58 PM) Oral (10/10/22 4:23 PM) Dry Weight 80.3 kg (10/10/22 4:23 PM) Weight Obtained Via Standing scale (10/10/22 4:23 PM) Dry Weight Obtained Via Standing scale (10/10/22 4:23 PM) Social History Social History Type Response Smoking Status Never (less than 100 in lifetime) entered on: 05/17/20 Sex Implantable Device List Procedure Provider Procedure Date Device Type Site Transvaginal Tape Cysto Tresa DOJeronimoMelina 09/09/22 Unknown Urethra Device Identifier Serial Number Lot or Batch Number Manufacturing Date Expiration Date Distinct Identification Code MRI Safety Implantable Status Assigning Authority Unknown Unknown [id number] Unknown 07/23/25 Unknown Unknown Active Unknown Note * Jordan PIERRE, Disha: PERFORM Event Display: Discharge/Transfer Note Hospital Authored Date: [id number] Nursing Discharge Note Entered On: 10/11/2022 1:02 EDT Performed On: 10/11/2022 0:24 EDT by Disha Ortega RN Nursing Discharge Note 2 Discharge Time : 10/11/2022 0:24 EDT Discharge Level of Care at Discharge : Home/Fdc/Foster Care Director Medical Writing Utilized : Yes Patient Left Unit Via : Ambulatory Patient Accompanied Off Unit with : Significant other DC Instructions Provided & Signed by Pt : Yes Patient Understands D/C Instructions : Yes Patient Instructions Discharge Signed : Yes Did Pt have Specialty Bed or Wound Vac : No Disha Ortega RN - 10/11/2022 1:02 EDT * Disha Ortega RN: PERFORM Event Display: Patient Education/Instruction Authored Date: [id number] Inpatient Adult Discharge Instructions [address] [address] Name: TENA GUADALUPEAMY : 1970 Visit: 10/10/2022 16:08:00 Current Date: 10/11/2022 00:02 Account: [id number] Inpatient Adult Discharge Instructions We would like [...] and their families. Surveys are administered by [employer] ?? If further treatment with your primary care physician or another doctor is recommended, it is important for you to keep the appointment. Call your primary care physician or return to the Emergency Department immediately if your condition worsens, fails to improve, or new symptoms develop. If you need to find a doctor, you can call [facility] for a referral at [phone] or toll free at [phone] or log in to [email or web address].. ?? You can view and manage your care through the patient portal or by using a health care kayla of your choosing. [employer] is a website that allows you to securely view your medical information including your hospital discharge summary, office visit summaries, medications and follow-up visits. You can also request appointments, renew medications, and request access to your medical information using a health care kayla of your choosing, or just ask a question. You can enroll at [email or web address] or register during your next office visit. You have been discharged from [facility], Patient Care Unit: [id number]. If you have any questions regarding these instructions after you leave, please call us and we will be happy to assist you. [facility] Your Care Team Attending Physician Martha Hawkins DO Your Diagnosis UTI symptoms Postoperative state Tests Performed Below is a partial list of the tests performed during your hospitalization. You may have had other tests and procedures not included in this list. Please discuss all test results with your provider. CBC w/ Differential Primary Care Provider Saskia GARCIA, [facility] Advance Directive Health Care Proxy on File No Discharge Vitals Temperature: 98.3 DegF Height: 158 cm Pulse Rate: 58 bpm Weight: 80.3 kg Respiratory Rate: 18 br/min Body Mass Index:??32.17 kg/m2??Critical Systolic Blood Pressure: 95 mm Hg Body surface area: 1.88 Diastolic Blood Pressure: 56 mm Hg ?? Oxygen Saturation: 100 % ?? Studies Pending All tests and labs ordered during this hospital stay have been completed unless listed below. Please discuss all pending results with your provider listed above in these instructions. ?? No incomplete studies found What to do next Instructions From Your Doctor Discharge Orders Scheduled Follow-Up Appointments 2022 9:40 AM EDT ?? With: Rachelle Dash DO Where: [address] [address]- [phone] Status: Pending Thursday 2:40 PM EDT ?? With: Melina Gtz DO Where: [facility] [address] [address]- Status: Pending You Need to Schedule the Following Appointments Follow Up with??[facility] [phone] When:??10/23/2022 09:40 AM EDT Discharge Medications TENA REYES :1970 Visit Date:10/10/2022 Medications: Please continue your medications until treatment is completed or stopped by your provider. Medications not listed below should be discontinued. Discuss any questions related to medications with your provider. What How Much When Instructions Next Dose New Nitrofurantoin (Macrobid macrocrystals-monohydrate 100 mg oral capsule) 1 capsule Oral Twice a day Duration: 5 Days Pickup at [facility]/pharmacy #[id number] Unchanged amiTRIPTYLINE (amitriptyline 25 mg oral tablet) 1 tab(s) Oral Daily at Bedtime Given ??to ??rheuma, ??Dr ??Fadi ?? Unchanged BusPIRone (busPIRone 15 mg oral tablet) 2 tab(s) Oral 3 times a day given by ??psych, Fatmata ??Kongo ?? Unchanged Cholecalciferol (Vitamin D3 1000 intl units oral tablet) 1 tab(s) Oral Daily Unchanged Clonazepam (clonazePAM 0.5 mg oral tablet) 1 tab(s) Oral Twice a day Unchanged Cyanocobalamin (Vitamin B12 1000 mcg oral tablet) 1 tab(s) Oral Daily Unchanged Durable Medical Equipment (TENS electrode pads) See instructions 1 box use as directed for back pain Dx Chronic myosfacial back pain 1 box of 4 ?? Unchanged Ferrous Gluconate (ferrous gluconate 240 mg oral tablet) 1 tab(s) Oral Daily Duration: 30 Days Take with juice ??discontinue ??ferrous ??sulfate ?? Unchanged Fluticasone Nasal (fluticasone 50 mcg/ inh nasal spray) See instructions USE 2 SPRAYS IN EACH NOSTRIL ONCE A DAY DURING ALLERGY SEASON ?? Unchanged Ibuprofen (ibuprofen 600 mg oral tablet) 1 tab(s) Oral Every 6 hours as needed for Pain , Mild Do not take if using Meloxicam ?? Unchanged Multivitamin With Minerals (Centrum Women 50 Plus Multigummies) 1 tab(s) Oral Daily in the morning Unchanged Tramadol (traMADol 50 mg oral tablet) 1 tab(s) Oral Every 12 hours as needed for Pain , Moderate TOME FRANCISCO TABLETA POR V?A ORAL DOS VECES AL D?A CUANDO SEA NECESARIO PARA EL DOLOR (NEED INS) ?? Unchanged Trazodone (trazodone 100 mg oral tablet) 1-1.5 tablet Oral Daily at Bedtime given by Fatmata stokes ??Kongo ?? Unchanged Venlafaxine (venlafaxine 150 mg oral capsule, extended release) 1 capsule Oral Daily given by Fatmata stokes ??Kongo ?? Pharmacy Information [facility]/pharmacy #[id number]: [address], [place] [id number] [phone] Test Results Below is a partial list of the most recent Laboratory test results done prior to this discharge. You may have had other tests and procedures not included in this list. Please discuss all test resultswith your provider. CBC w/ Differential (10/10/2022) ???WBC - 6.5 k/mm3???RBC - 3.92 m/mm3???Hgb - 12.2 Gm/dL???Hct - 36.5 %???MCV - 93.1 femtoliters???MCH - 31.1 pg???MCHC - 33.4 g/dL???Platelet Count - 296 k/mm3???RDW-SD - 50.4 femtoliters???MPV - 10.3 femtoliters???Nucleated RBC (Automated) - 0.0 #/100 WBC'S???Abs. NRBC - 0.0 k/mm3???Abs. Neut - 3.0 k/mm3???Abs. Lymph - 1.8 k/mm3???Abs. Bulloch - 1.0 k/mm3???Abs. Eo - 0.6 k/mm3???Abs. Baso - 0.1 k/mm3???Neut % - 46.3 %???Lymph % - 27.4 %???Bulloch % - 15.9 %???Eos % - 9.1 %???Baso % - 1.1 %???Imm Gran - 0.2 %???Abs. Imm Gran - 0.0 k/mm3 Allergies (NKA means No Known Allergies) No Known Medication Allergies Problems Active Problems??(20) *[phone] Colorer Rhonda Harrison?? Alcohol abuse?? Anxiety depression?? Binge-eating disorder, moderate?? Cervical arthritis?? Chronic back pain?? Encounter for IUD insertion?? Encounter for Liletta IUD insertion?? Fibromyalgia?? Gastritis?? Hypercholesterolemia?? Insomnia?? Iron deficiency anemia?? Migraines?? Obese class I?? Obesity?? Panic attack?? Seasonal allergic rhinitis?? Varicella immune?? Vitamin D deficiency?? Education Materials Below is the list of Educational Leaflet Providered with your Discharge Instructions. Urinary Tract Infections in Women?? Valuables and Belongings I fully understand and agree that [facility] accepts no responsibility for all my personal [...] encouraged to send valuables and belongings home. ? Other Discharge Information ? Pulmonary Rehab Status?? Pulmonary Rehab Discharge Status?? Respiratory Rate: 18 br/min ? Common Emergency Awareness Tips IS [...] are strongly encouraged to quit. Please call [facility] at [phone] or [phone]) or log in to [email or web address] for referrals to smoking cessation programs. ?? 222 Suicide & Crisis Lifeline is available 24/11 if you or someone you know needs to find a reason to keep living. By calling 706 you'll be connected to a skilled, trained counselor at a crisis center in your area. INPATIENT DISCHARGE INSTRUCTIONS SIGNATURE PAGE ANAYELI GUADALUPESLIMEN Location:[facility] Registration Date and Time:10/10/2022 16:08 EDT Primary Care Physician: Farhan Kruger MD, Attending Physician: Martha Hawkins DO, I TENA REYES, have received the above patient education materials/instructions and have verbalized understanding. If ambulance or transport services are being used I further acknowledge being given a choice of service. ?? If you need to contact me, please call me at this number: . Patient/Vat Packer Name: Patient/Vat Packer Signature: Relationship to Patient: Witness Name/Signature: Date: * Disha Ortega RN: PERFORM, SIGN, VERIFY Event Display: Patient Education Handout Authored Date: * Disha Ortega RN: PERFORM Event Display: Patient Education Leaflets Authored Date: Urinary Tract Infections in Women ?? [id number] Infecciones de las v??as urinarias en las mujeres Las infecciones urinarias suelen presentarse a causa de bacterias. Estas bacterias ingresan a las v??as urinarias. Las bacterias pueden venir desde el interior del cuerpo. O pueden desplazarse desde la charles del recto o de la vagina hasta el interior de la uretra. La anatom??a de la addei hace m??s f??cil la entrada de bacterias de los intestinos en las v??as urinarias, que es la saritha m??s com??n de infecci??n urinaria. Por eso, estas infecciones son m??s frecuentes en las mujeres que en los hombres. Un s??ntoma com??n de las infecciones urinarias es el dolor en las v??as urinarias o cerca de estas. Sin embargo, la ??ranjeet manera de saber con certeza si hay francisco infecci??n es que el proveedor de atenci??n m??dica le lana un an??lisis de orina. Las dos pruebas que podr??an hacerle son un an??lisis de orina y un urocultivo. Tipos de infecciones de las v??as urinarias ??? Cistitis. La infecci??n de la vejiga (cistitis) es la infecci??n urinaria m??s com??n en las mujeres. Es posible que tenga deseo urgente o frecuente deorinar. Tambi??n puede tener dolor, ardor al orinar y orina con belgica. ??? Uretritis. Es francisco uretra inflamada, que es el conducto que lleva la orina desde la vejiga al exterior del cuerpo. Puede tener dolor en la parte baja del est??lizette o en la espalda. Es posible que tambi??n tenga deseo urgenteo frecuente de orinar. ??? Pielonefritis. Es francisco infecci??n en los ri??ones. Puede causarles da??osgraves si se ashley sin tratar. En los casos m??s graves puede requerir hospitalizaci??n. Los s??ntomas pueden consistir en fiebre y dolor en la parte inferior de la espalda. ?? Medicamentos para tratar francisco infecci??n de las v??as urinarias La mayor??a de las infecciones de las v??as urinarias se tratan con antibi??ticos. Los antibi??ticos pueden destruir las bacterias. La duraci??n del tratamiento con antibi??ticos depender?? del tipo de infecci??n que tenga. Puede ser de apenas 3??d??as. Si tiene infecciones urinarias frecuentes, podr??a tener que usar francisco dosis baja de antibi??ticos zach varios meses. Use los antibi??ticos seg??n las indicaciones. No deje los antibi??ticos hasta que los haya terminado, incluso si se siente mejor. Si usted ashley de usar un antibi??adrian antes de tiempo, la infecci??n quiz??s no desaparezca. Tambi??n puede hacerse resistente al antibi??adrian. [place] puede hacer que sea mucho m??s dif??cil de tratar. ?? Cambios del estilo de avis para tratar y prevenir las infecciones urinarias Los cambios de estilo de avis descritos a continuaci??n pueden ayudarla a combatir la infecci??n urinaria. Tambi??n puede ayudar a prevenir futuras infecciones en las v??as urinarias. ??? Crystal abundante cantidad de l??quidos. Por ejemplo, agua, jugos u otras bebidas sin cafe??na. [place] ayuda a eliminar las bacterias. ??? Vac??e la vejiga. Siempre vac??e la vejiga??cuando tenga ganas de orinar. Orine siempre antes de acostarse. La orina que permanece en la vejiga promueve la infecci??n. Tambi??n trate de orinar antes y despu??s de tener relaciones sexuales. ??? Practique francisco buena higiene personal. L??mpiese jovanny con un movimiento desde adelante hacia atr??s despu??s de usar el inodoro. [place] ayuda a evitar que las bacterias entren a la uretra. ??? Use ropa interior de algod??n. No use ropa interior sint??yamini o ajustada que pueda retener la humedad. C??mbiese r??pidamente los trajes de ba??o y la ropa de ejercicio mojados. ??? D??chese. Las duchas son mejores que los ba??os para prevenir las infecciones urinarias. ??? Utilice condones zach las relaciones sexuales. [place] ayuda a prevenir las infecciones urinarias provocadas por bacterias transmitidas sexualmente. Adem??s, evite el uso de espermicidas en las relaciones sexuales. Aumentan el riesgo de padecer infecciones urinarias.Elija otra forma de anticoncepci??n. Las mujeres que suelen presentar infecciones urinarias despu??s de tener relaciones sexuales podr??an utilizar un antibi??adrian preventivo de dosis baja. Aseg??rese de hablar de esta opci??n con cason proveedor de atenci??n m??dica. ??? Lana el seguimiento necesariocon el proveedor de atenci??n m??dica seg??n lo indicado. Erika profesional puede realizar pruebas para asegurarse de que la infecci??n haya desaparecido. Si es necesario, empezar?? un tratamiento adicional. ?? Last Reviewed Date: 2021 ?? [id number] [employer]. Todos los derechos reservados. Esta informaci??n no pretende sustituir la atenci??n m??dica profesional. S??lo cason m??dico puede diagnosticar y tratar un problema de lorri. ?? Patient Care team information Care Team Personnel Name: Rebecca Louis RN Position: S RN Member Role: Primary Care Nurse Name: Jenni Rosado Position: S RN Member Role: Primary Care Nurse Name: Farhan Kruger MD Position: S Physician - Primary Care Member Role: PCP Address: Address: [address] [place] [address] Name: Disha Ortega RN Position: S OB RN Member Role: OB RN Care Team Related Persons Name: MAYLIN DUBOSE Address: home [address] [place] [address] Name: TAMERA BOJORQUEZ Address: home [address] [place] [address]
== END 2023-03-03 14:23 | disposition home or self-care (01) ==
LOC: HO.HBS 14:12
PROVIDERS: PCP Family Medicine; Visit Provider Physician Assistant
DX: E66.9 Obesity, unspecified (principal); Z68.33 Body mass index [BMI] 33.0-33.9, adult; Z90.3 Acquired absence of stomach [part of]; Z98.84 Bariatric surgery status
CPT/HCPCS: 99213

== ENCOUNTER → 2023-03-03 14:00 | Outpatient (BNVA) | payer OTHER, SELFPAY | PROVIDERS: PCP Family Medicine; Visit Provider Physician Assistant ==

== ENCOUNTER → 2023-03-16 14:00 | Outpatient (BNVA) | payer OTHER, SELFPAY | PROVIDERS: PCP Family Medicine; Visit Provider Dietitian, Registered | DX: E66.9 Obesity, unspecified (principal); Z98.84 Bariatric surgery status | CPT/HCPCS: 97803 ==

== ENCOUNTER 2023-03-30 10:00 | Outpatient (AMB) | payer OTHER, SELFPAY ==
--- NOTE | 2023-03-30 10:24 | MHC.WMTHER ---
Intake Intake Visit Reasons: VIDEO F/U Allergies No Known Allergies [No Known Allergies*] Allergy (Verified 11/11/22 11:14) PFSH Medical History (Updated 04/15/23 @ 10:17 by Ana [facility]) Fibromyalgia Arthritis Depression with anxiety Surgical History H/O umbilical hernia repair Hx of hysterectomy S/P laparoscopic sleeve gastrectomy Tubal ligation status Family History Mother Diabetes Hypertension Father Hypertension Social History Alcohol intake: current Alcohol intake frequency: holidays/special occasions only Patient Tobacco Use Status: Never used Tobacco Behavioral Health Assessment Weight Management Therapy Therapy Notes Details PT has been refered by [facility] Provider as patient has been struggling with weight-gain and also dealing with increased anxiety as she is dealing with new medical issues and procedures leading to less physical activity and more stress. PT sees providers on a regular basis, however current therapist is on vacation and she would like support with emotional eating. Pt reports she has a hard time keeping up with meal plan, exercising and being motivated. Today we worked on the initial assessment, we identified main needs and we practiced a mindfullness excercise to manage urges/food craving and thoughts. Provided with validation and support as pt is showing adjustment responses with anxiety to recent sources of stress. Presenting Concerns Referral Source [facility] Provider. Reason for referral Pt has gained weight in the past year and is having issues with stress eating. Precipitating Event Gained around 20Lbs in last 2 year. Living Situation Current Living Situation Rent At risk of losing current housing? No Satisfied with current living situation? Yes Comments PT lives with and 2 children (21 y/o daughter and 21 y/o son)/ both has autism. Food/Weight/Diet Expectations of change Target weight 150Lbs, current weight 181Lbs, was 190Lbs couple weeks ago. HAs gained 20Lbs in last year. History/Relationship with food some issues with increased appetite when stressed. History/Relationship with weight Obese in the past. Had bariatric surgery in 2019 History/Relationship with dieting Bariatric surgery in 2019. [facility] meal plan. Binge Eating Do you frequently eat large amounts of food in short periods of time, not feeling physically hungry? Yes Do you feel out of control when you eat a large amount of food in a short period of time? Yes Do you eat large amounts of food rapidly and typically alone? No Night Eating Do you wake up at least once during the night to eat? Yes If you wake up in the night, do you find that it is necessary to eat something in order to fall back asleep? Yes Do you have little or no appetite in the morning and feel very hungry in the evening, often overeating between dinner and when you go to bed? Yes Social History Family history and relationship PT is 31 years ago. They have 3 adult children. 2 of the children with autism and still living with them. Distant family relationships. Her parents are , they all have a good relationship. 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 Developmental history and status None reported. Social support . Community support Medical providers. Shinto/Spirituality Congregation Cultural/Ethnic information Croatian. Living in [place] 18 years ago. [place]-speaking. Legal Involvement and History Current or historical involvement with the legal system? None reported. Education Highest grade completed Associate degree. Preferred learning style Visual Currently enrolled in educational program? No Interested in further educational program? No Employment Employment Status Unemployed Wants help to find employment? No Meaningful activities Hiking, outside walks, ride her bike. Financial Situation Describe current financial situation Occasional struggle Financial assistance? Food [place], Disability (Since 2013.) and Other (kids receive SSI.) Service Service? No Mental Health and Addiction Treatment Current/Past substance abuse? No Current/Past addictive behavior concerns? No Psychiatric history PT attends counseling on a bi-weekly basis and sees a prescriber every 2 months at [facility]. Diagnosed with anxiety, panic attacks and depression. Currently taking: Trazodone 100mg at bedtime, Venlafaxine 37.5mg 1 at day, Clonazepam 1mg 2 at day and Buspirone 15mg 3 at day-As needed. Medical and Physical Health Summary Additional Medical History not covered in history None reported Sexual History concerns None reported Physical exam in the last year? Yes Pain Screening Current pain? Yes Pain in the last few months? Yes Medications Is the patient compliant with medications? Yes Does the patient have Logan Guardian in place? Not applicable Does the patient use complimentary health approaches? Yes (Meditation, deep breathing, pilates. ) Assessment & Plan Assessment & Plan (1) Adjustment disorder: Code(s): F43.20 - Adjustment disorder, unspecified Qualifiers: Adjustment disorder type: with mixed anxiety and depressed mood Qualified Code(s): F43.23 - Adjustment disorder with mixed anxiety and depressed mood Plan Pt will be seen again for support. Next kayla 04/13/2023 at 9am - telehealth. Telehealth Telehealth Location of provider rendering services: other Location of patient: address on file Patient Identification confirmed using: Name, : Yes Telehealth method: video Patient verbally consented to treatment: Yes Patient verbally consented to billing insurance company: Yes Patient informed of any privacy concerns related to visit: No Minutes spent on Phone/Video with Pt.: 60 Coding Level of Care Code New Pt Tele Psy Diag Dorothea ([id number]) Patient Type New Diagnoses Adjustment disorder with mixed anxiety and depressed mood F43.23 Adjustment disorder type: with mixed anxiety and depressed mood
== END 2023-03-30 11:00 | disposition home or self-care (01) ==
LOC: HO.HBST 10:28
PROVIDERS: PCP Family Medicine; Visit Provider Counselor Mental Health
DX: F43.23 Adjustment disorder with mixed anxiety and depressed mood (principal)
CPT/HCPCS: 90791

== ENCOUNTER → 2023-03-30 10:00 | Outpatient (BNVA) | payer OTHER, SELFPAY | PROVIDERS: PCP Family Medicine; Visit Provider Counselor Mental Health ==

== ENCOUNTER 2023-04-14 11:06 | Outpatient (AMB) | payer OTHER, SELFPAY ==
--- NOTE | 2023-04-14 11:01 | MHC.AMNUTRGE ---
Intake Intake Visit Reasons: (TV) PO LSG 10/15/18 Broadcast Technician Required: Yes Broadcast Technician Name: ariel shaffer #[id number] Information Interpreted: non-clinical & clinical Allergies No Known Allergies [No Known Allergies*] Allergy (Verified 11/11/22 11:14) HPI Nutrition Presentation Details LSG DOS 10/05/18 Wt (12/28/2019) 130# weight (05/2021) 145# 03/03/23 183# Reason for consult elevated BMI Diet Assmnt Details Last appt, educated pt on how to have more variety and still remain on a healthy, high protein meal plan. she reports doing much better , much less hungry. Sometimes eats meals from restaurants when busy which are not always protein and veg based. still struggles with anxiety and stress, which triggers her to eat breakfast- likes to have eggs 12pm protein shake 3pm yogurt or protein bar 6pm dinner Exercise - treadmill or walking for 300 calories 5 d/ week. Dietary counseling reduction Diagnosis Nutrition problem #1 overweight/obesity As related to (etiology) #1 excess energy intake and physical inactivity As evidenced by (sign/symptom) #1 high BMI Monitoring/Goals Nutrition problem monitoring total energy intake, level of knowledge/skill, total PRO intake, total CHO intake, weight and oral fluids Outcome progress progressing Learning/Education Readiness to learn good Stages of change action Educational materials provided Yes Most Recent Diabetes Results: Cholesterol 226 mg/dL 11/13/22 HDL Cholesterol 67 mg/dL 11/13/22 Triglycerides 62 mg/dL 11/13/22 Creatinine 0.72 mg/dL (0.5-1.4) 11/13/22 Blood Urea Nitrogen 19 mg/dL (9-16) H 11/13/22 Sodium 134 mmol/L (135-145) L 11/13/22 Potassium 4.5 mmol/L (3.3-5.1) 11/13/22 Chloride 103 mmol/L (96-108) 11/13/22 Carbon Dioxide 25 mmol/L (22-29) 11/13/22 Calcium 9.3 mg/dL (8.4-10.2) 11/13/22 AST 16 U/L (5-31) 11/13/22 ALT 13 U/L (0-31) 11/13/22 Total Protein 7.4 g/dL (6.5-8.0) 11/13/22 Albumin 3.9 g/dL (3.5-5.0) 11/13/22 PFSH Medical History (Updated 11/11/22 @ 11:48 by MELODY Amador) Fibromyalgia Arthritis Depression with anxiety Surgical History H/O umbilical hernia repair Hx of hysterectomy S/P laparoscopic sleeve gastrectomy Tubal ligation status Family History Mother Diabetes Hypertension Father Hypertension Social History Alcohol intake: current Alcohol intake frequency: holidays/special occasions only Patient Tobacco Use Status: Never used Tobacco Assessment & Plan Assessment & Plan (1) Overweight with body mass index (BMI) 25.0-29.9: Code(s): E66.3 - Overweight Plan nutrition follow up 3 MO Patient Instructions: pt reports main issue is anxiety and stress eating at the moment,she will continue to work with Ana on managing emotional triggers. follow up with me in 3 MO as preferred by pt. Telehealth Telehealth Location of provider rendering services: practice address Location of patient: address on file Patient Identification confirmed using: Name, : Yes Telehealth method: voice only Patient verbally consented to treatment: Yes Patient verbally consented to billing insurance company: Yes Patient informed of any privacy concerns related to visit: Yes Minutes spent on Phone/Video with Pt.: 20 Coding Level of Care Code Nutr Indiv Subseq ([id number]) Diagnoses Overweight with body mass index (BMI) 25.0-29.9 E66.3 Time Spent (min) 20
== END 2023-04-14 11:13 | disposition home or self-care (01) ==
LOC: HO.HBS 11:06
PROVIDERS: PCP Family Medicine; Visit Provider Dietitian, Registered
DX: E66.3 Overweight (principal)

== ENCOUNTER → 2023-04-14 11:06 | Outpatient (BNVA) | payer OTHER, SELFPAY | PROVIDERS: PCP Family Medicine; Visit Provider Dietitian, Registered | DX: E66.3 Overweight (principal) | CPT/HCPCS: 97803 ==

== ENCOUNTER 2023-07-14 11:26 | Outpatient (AMB) | payer OTHER, SELFPAY ==
--- NOTE | 2023-07-14 10:59 | A.OFFVIS_ITS ---
Intake Intake Visit Reasons: (TV) PO LSG 10/15/[address] Interpreter Required: Yes Certified Court Interpreter Name: isaias [id number] Information Interpreted: non-clinical & clinical Allergies No Known Allergies [No Known Allergies*] Allergy (Verified 11/11/22 11:14) HPI Nutrition Presentation Details LSG DOS 10/05/18 Wt (12/28/2019) 130# weight (05/2021) 145# 03/03/23 183# current weight 180# Reason for consult elevated BMI Diet Assmnt Details Reports emotional eating better. today she states, I do not know why I'm not losing weight She reports going through menopause breakfast- likes to have eggs or protein shake 12pm meat, vegetables 3pm yogurt or protein bar 6pm dinner - portions unknow Exercise - Isn't really able to verbalize exactly what she is doing for exercise. Some hiking, mostly weight training some cardio but inconsistent with how often and for how long. Diagnosis Nutrition problem #1 overweight/obesity As related to (etiology) #1 excess energy intake and physical inactivity As evidenced by (sign/symptom) #1 high BMI Monitoring/Goals Nutrition problem monitoring total energy intake, level of knowledge/skill, total PRO intake, total CHO intake, weight and oral fluids Most Recent Diabetes Results: Cholesterol 226 mg/dL 11/13/22 HDL Cholesterol 67 mg/dL 11/13/22 Triglycerides 62 mg/dL 11/13/22 Creatinine 0.72 mg/dL (0.5-1.4) 11/13/22 Blood Urea Nitrogen 19 mg/dL (9-16) H 11/13/22 Sodium 134 mmol/L (135-145) L 11/13/22 Potassium 4.5 mmol/L (3.3-5.1) 11/13/22 Chloride 103 mmol/L (96-108) 11/13/22 Carbon Dioxide 25 mmol/L (22-29) 11/13/22 Calcium 9.3 mg/dL (8.4-10.2) 11/13/22 AST 16 U/L (5-31) 11/13/22 ALT 13 U/L (0-31) 11/13/22 Total Protein 7.4 g/dL (6.5-8.0) 11/13/22 Albumin 3.9 g/dL (3.5-5.0) 11/13/22 [facility] Medical History (Updated 04/15/23 @ 10:17 by Ana Sullivan [facility]) Fibromyalgia Arthritis Depression with anxiety Surgical History H/O umbilical hernia repair Hx of hysterectomy S/P laparoscopic sleeve gastrectomy Tubal ligation status Family History Mother Diabetes Hypertension Father Hypertension Social History Alcohol intake: current Alcohol intake frequency: holidays/special occasions only Patient Tobacco Use Status: Never used Tobacco Assessment & Plan Assessment & Plan (1) Obesity (BMI 30-39.9): Code(s): E66.9 - Obesity, unspecified Plan pt to continue f/u with Alma OLIVER Patient Instructions: recommended getting a food scale to assess portions as she isn't sure how much she is having. we also talked about influence that menopause has on weight. Encouraged increasing cardio for heart health (such as outside walks) in addition to weight training for muscle bone and joint health. Telehealth Telehealth Location of provider rendering services: practice address Location of patient: address on file Patient Identification confirmed using: Name, : Yes Telehealth method: voice only Patient verbally consented to treatment: Yes Patient verbally consented to billing insurance company: Yes Patient informed of any privacy concerns related to visit: Yes Minutes spent on Phone/Video with Pt.: 30 Coding Level of Care Code Nutr Indiv Subseq ([id number]) Diagnoses Obesity (BMI 30-39.9) E66.9 Time Spent (min) 30
== END 2023-07-14 12:11 | disposition home or self-care (01) ==
LOC: HO.HBS 11:27
PROVIDERS: PCP Family Medicine; Visit Provider Dietitian, Registered
DX: E66.9 Obesity, unspecified (principal)

== ENCOUNTER → 2023-07-14 11:26 | Outpatient (BNVA) | payer OTHER, SELFPAY | PROVIDERS: PCP Family Medicine; Visit Provider Dietitian, Registered | DX: E66.9 Obesity, unspecified (principal); Z83.3 Family history of diabetes mellitus | CPT/HCPCS: 97803 ==

== ENCOUNTER 2024-07-26 11:17 | Outpatient (AMB) | payer OTHER, SELFPAY ==
--- NOTE | 2024-07-26 11:22 | A.OFFVIS_ITS ---
VS Expanded 07/26/24 11:26 BP 119/71 Blood Pressure Location Lt brachial Blood Pressure Position Sitting Pulse 72 Pulse Source Pulse Oximeter Pulse Oximetry 99 Height 5 ft 2 in Weight 189 lb 3.2 oz BMI 34.6 Body Fat % 42.8 Body Fat Mass 81.0 Fat Free Mass 08.2 Visceral Fat Rating 11.0 Body Water % 40.8 Body Water Mass 77.2 Muscle Mass/Score 102.8 Basal Metabolic Rate/Score 2,473 Intake Visit Reasons: OV PO LSG 10/15/18 *GLP-1* Digital Marketer Required: Yes Digital Marketer Services: Digital Marketer Present Digital Marketer Name: hospital cmi Allergies No Known Allergies [No Known Allergies*] Allergy (Verified 07/26/24 11:23) Medication List - Last Reconciled 07/26/24 by MELODY Cisneros amitriptyline 25 mg PO BEDTIME biotin 1,000 mcg PO DAILY buspirone 15 mg PO TID cholecalciferol (vitamin D3) 25 mcg PO DAILY clonazepam 1 mg PO BID PRN cyanocobalamin (vitamin B-12) (Vitamin B-12) 1,000 mcg PO DAILY diclofenac sodium 1% (Arthritis Pain (diclofenac)) 2 grams topical QID iron,carbonyl-vitamin C 65 mg iron- 125 mg (Vitron-C) 1 tab PO BEDTIME meloxicam 15 mg PO DAILY multivitamin 1 tab PO DAILY oxybutynin chloride 5 mg PO BEDTIME PRN tramadol 50 mg PO TID PRN trazodone 0 mg PO venlafaxine ER 150 mg PO DAILY vitamin A 1 cap PO DAILY HPI Comments Details: Patient is a 53-year-old female who returns to the office today in follow-up. She is approximately 5 years 9 months post sleeve gastrectomy performed 10/15/2018. She was last seen in the office in July 2023 with a weight of 180 lb. Weight today is 189.2 lb with a BMI of 34.6. Wants to try zepbound and is seeing a therapist bi weekly. She was made aware about possible increase in depression with Zepbound and will immediatly discuss with her therapist Meal plan: eggs or oatmeal or yogurt sandwich meat rice pasta veg not measuring drinking 40-60 oz daily exercise plan 3-4 days per week at gym weight and cardio outdoor hiking 2 days per week Any post op complications: None PANDA: never DM: never HTN: never Hyperlipidemia: never GERD:?0-5 scale ??0 = no symptoms ??1 = symptoms noticeable but not bothersome 2 =symptoms bothersome but not daily ? 3 = symptoms bothersome and daily 4 = symptoms affect daily activities 5 = symptoms are incapacitating, unable to do daily activities ? How bad is the heartburn: 3 ? Heartburn while lying down: 3 ? Heartburn when standing up: 2 ? Heartburn after meals: 3 ? Does heartburn change your diet: 3 ? Does heartburn wake you up from sleep: 0 ? Do you have difficulty swallowin ? Do you have pain with swallowin ? If you take medicine for your reflux, does this affect your daily life: 0 Satisfaction with present condition - satisfied or not satisfied: not satisfied PFSH Medical History Fibromyalgia Arthritis Depression with anxiety Surgical History Hx of hysterectomy H/O umbilical hernia repair Tubal ligation status S/P laparoscopic sleeve gastrectomy Family History Mother Diabetes Hypertension Father Hypertension Social History Alcohol intake: current Alcohol intake frequency: holidays/special occasions only Patient Tobacco Use Status: Never used Tobacco Physical Exam Vital Signs: Last Vital Signs Pulse 72 07/26/24 11:26 BP 119/71 07/26/24 11:26 Pulse Ox 99 07/26/24 11:26 BMI result Body Mass Index 34.6 Const General: cooperative and no acute distress Orientation/consciousness: patient oriented x3 Resp Effort & Inspection: normal respiratory effort Auscultation: clear to auscultation bilaterally Cardio Rate: regular rate Rhythm: regular rhythm GI Inspection: Yes normal to inspection and Yes incision (well healed) Palpation (GI): Soft to palpation and no masses Neuro General: patient oriented x3 Assessment & Plan Assessment & Plan (1) S/P laparoscopic sleeve gastrectomy: Code(s): Z98.84 - Bariatric surgery status Category: Surgical Plan: We will initiate Zepbound 2.5 mg weekly. Patient was made aware of the potential risks and side effects of the medication. She does see a behavioral health therapist by weekly and psychiatry every 3 months. She will discuss with her therapist if she experiences any increased symptoms of depression. Additionally, she was given information regarding the right BMI kayla. her reflux is likely secondary to eating and drinking too much and too quickly. This was discussed with the patient in depth. She will go on the kayla and create a new meal plan. We will have her return to the office in approximately 4-5 weeks. Additionally, we will check postop lab work as she has not had any recently. Regarding exercise, discussed the importance of exercising regularly. She does go to the gym 3 days per week, recommend increasing this to 5 days per week with a goal of burning 400 calories per session. She does enjoy hiking on the weekends and we will continue to do so. Orders: Orders Insulin Today Z98.84 - Bariatric surgery status IRON PROFILE Today Z98.84 - Bariatric surgery status Vitamin B12 and Folate Today Z98.84 - Bariatric surgery status C Reactive Protein Today Z98.84 - Bariatric surgery status Vitamin B1 Today Z98.84 - Bariatric surgery status Vitamin A Today Z98.84 - Bariatric surgery status TSH reflex Free T4 Today Z98.84 - Bariatric surgery status Ferritin Today Z98.84 - Bariatric surgery status Hemoglobin A1c Today Z98.84 - Bariatric surgery status Complete Blood Count Auto Diff Today Z98.84 - Bariatric surgery status Lipid Panel Today Z98.84 - Bariatric surgery status Comprehensive Met. Panel Today Z98.84 - Bariatric surgery status Zinc Today Z98.84 - Bariatric surgery status Vitamin D 25-OH Total Today Z98.84 - Bariatric surgery status Medications: New tirzepatide (weight loss) (Zepbound) for 4 weeks 2.5 mg (0.5 mL) subcut QWEEK 2 mL 0RF
[2024-07-26 11:26] VITALS: BP 119/71; PULSE 72; O2SAT 99; BMI 34.6
--- OUTSIDE RECORDS SUMMARY | 2024-07-26 14:04 | XMS_ITS | Continuity of Care Document ---
Author Organization [facility] Address [address] [place] [address] Phone Care Team Providers Care Dairy Quality Assurance Officer Name Role Phone No Information Unavailable Unavailable Medications Medication Instructions Dosage Effective Dates (start - stop) Status Comments No Drug Therapy Prescribed Advance Directives Directive Yes / No Effective Date File Name No Information Encounters Encounter Description Practice Location Reason(s) For Visit Diagnoses Date Provider Providers Copied on Encounter [facility], [address] [place] [address], [facility], [place] tel:[phone] No Information No Information Family History Family Member Type Diagnosis Age At Onset No Information Payers Payer name Insurance type Covered democrat ID Authoriza tion(s) No Information Social History Type Description Quantity Date Captured Comments Sex Female Smoking Status No Information Chief Complaint And Reason For Visit No Information History Of Present Illness Encounter Date Complaint History Of Prese nt Illness No Information Medications Administered Medication Instructions Dosage Effective Dates (start - stop) Status Comments No Drug Therapy Prescribed Instructions Date Instruction Additional Infor mation No Information Assessments Type Assessment Date No Information
== END 2024-07-26 12:02 | disposition home or self-care (01) ==
LOC: HO.HBS 11:18
PROVIDERS: PCP Family Medicine; Visit Provider Physician Assistant Surgical
DX: E66.811 Obesity, class 1 (principal); Z68.34 Body mass index [BMI] 34.0-34.9, adult; Z90.3 Acquired absence of stomach [part of]; Z98.84 Bariatric surgery status
CPT/HCPCS: 99214

== ENCOUNTER → 2024-07-26 11:17 | Outpatient (BNVA) | payer OTHER, SELFPAY | PROVIDERS: PCP Family Medicine; Visit Provider Physician Assistant Surgical | DX: K21.9 Gastro-esophageal reflux disease without esophagitis (principal); F32.A Depression, unspecified; Z98.84 Bariatric surgery status | CPT/HCPCS: 99212 ==

== ENCOUNTER 2024-09-05 10:45 | Outpatient (AMB) | payer OTHER, SELFPAY ==
--- NOTE | 2024-09-05 10:49 | A.OFFVIS_ITS ---
VS Expanded 09/05/24 11:01 BP 131/67 Blood Pressure Location Rt brachial Blood Pressure Position Sitting Pulse 62 Pulse Source Pulse Oximeter Temp 98.4 F Temperature Source Temporal Artery Scan Pulse Oximetry 99 Oxygen Delivery Method Room Air Height 5 ft 2 in Weight 187 lb 9.6 oz BMI 34.3 Body Fat % 43.9 Body Fat Mass 82.2 Fat Free Mass 105.2 Visceral Fat Rating 11.0 Body Water % 39.9 Body Water Mass 74.8 Muscle Mass/Score 99.8 Basal Metabolic Rate/Score 1,472 Intake Visit Reasons: OV PO LSG 10/15/18 *GLP-1* Branch Logistics Supervisor Required: Yes Branch Logistics Supervisor Services: Branch Logistics Supervisor Present Branch Logistics Supervisor Name: hospital cmi Allergies No Known Allergies [No Known Allergies*] Allergy (Verified 09/05/24 10:55) Medication List - Last Reconciled 09/05/24 by MELODY Cisneros amitriptyline 25 mg PO BEDTIME biotin 1,000 mcg PO DAILY buspirone 15 mg PO TID cholecalciferol (vitamin D3) 25 mcg PO DAILY clonazepam 1 mg PO BID PRN cyanocobalamin (vitamin B-12) (Vitamin B-12) 1,000 mcg PO DAILY diclofenac sodium 1% (Arthritis Pain (diclofenac)) 2 grams topical QID iron,carbonyl-vitamin C 65 mg iron- 125 mg (Vitron-C) 1 tab PO BEDTIME meloxicam 15 mg PO DAILY multivitamin 1 tab PO DAILY oxybutynin chloride 5 mg PO BEDTIME PRN tramadol 50 mg PO TID PRN trazodone 0 mg PO venlafaxine ER 150 mg PO DAILY vitamin A 1 cap PO DAILY HPI Comments Details: Patient is a 54-year-old female who returns to the office today in follow-up. She is approximately 5 years 11 months post sleeve gastrectomy performed 10/15/2018. She was last seen in the office in 07/26/2024, for the 1st time in a year, at that time her weight was 189.2 lb with a BMI of 34.6. She was given right BMI kayla and Zepbound was prescribed although denied. Wegovy was prescribed although denied.. Weight today is 187.6 with a BMI of 34.3. She has lost 1.6 lb. She did not get labs done which were ordered at her visit in July. She states that she had periods of lightheadedness and feelings of hu nger when she followed the meal plan exactly. She amended it herself by increasing the food portions slightly and the lightheadedness resolved. She did also start drinking more fluids. Meal plan: 2 eggs premier protein rtd shake meal 5 forks meat and 5 forks veg another meal drinking 64 oz daily exercise plan 4-6 days per week at gym treadmill, 500 PFSH Medical History Fibromyalgia Arthritis Depression with anxiety Surgical History Hx of hysterectomy H/O umbilical hernia repair Tubal ligation status S/P laparoscopic sleeve gastrectomy Family History Mother Diabetes Hypertension Father Hypertension Social History Alcohol intake: current Alcohol intake frequency: holidays/special occasions only Patient Tobacco Use Status: Never used Tobacco Physical Exam Const General: healthy appearing and no acute distress Resp Effort & Inspection: normal respiratory effort Auscultation: clear to auscultation bilaterally Cardio Rate: regular rate Rhythm: regular rhythm GI Auscultation: normal bowel sounds Extrem General: Yes normal to inspection Assessment & Plan Assessment & Plan (1) S/P laparoscopic sleeve gastrectomy: Code(s): Z98.84 - Bariatric surgery status Category: Surgical Plan: Patient has had a slight gain in body fat mass. It is unclear what the lightheadedness was from although she was also recently prescribed tramadol. She does report feeling better overall and recommendation was to continue to follow the meal plan. Continue exercise as she has been doing. We will have her return to the office in approximately 4 weeks. Encouraged to text weekly her weight and with any questions or concerns. Medications: Discontinued semaglutide (weight loss) (Josefa) Discontinued Reason: Patient no longer taking 0.25 mg (0.5 mL) subcut QWEEK 2 mL 0RF
[2024-09-05 11:01] VITALS: BP 131/67; PULSE 62; TEMP 36.9; O2SAT 99; BMI 34.3
--- OUTSIDE RECORDS SUMMARY | 2024-09-05 12:16 | XMS_ITS | Continuity of Care Document ---
Author Organization [facility] Address [address] [place] [address] Phone Care Team Providers Care Service Delivery Supervisor Name Role Phone No Information Unavailable Unavailable Medications Medication Instructions Dosage Effective Dates (start - stop) Status Comments No Drug Therapy Prescribed Advance Directives Directive Yes / No Effective Date File Name No Information Encounters Encounter Description Practice Location Reason(s) For Visit Diagnoses Date Provider Providers Copied on Encounter [facility], [address] [place] [address], [id number], [place] tel:[phone] No Information No Information Family History Family Member Type Diagnosis Age At Onset No Information Payers Payer name Insurance type Covered alliance party ID Authoriza tion(s) No Information Social History [...]
== END 2024-09-05 11:21 | disposition home or self-care (01) ==
LOC: HO.HBS 10:46
PROVIDERS: PCP Family Medicine; Visit Provider Physician Assistant Surgical
DX: E66.09 Other obesity due to excess calories (principal); E66.811 Obesity, class 1; Z68.34 Body mass index [BMI] 34.0-34.9, adult; Z98.84 Bariatric surgery status
CPT/HCPCS: 99213

== ENCOUNTER → 2024-09-05 10:45 | Outpatient (BNVA) | payer OTHER, SELFPAY | PROVIDERS: PCP Family Medicine; Visit Provider Physician Assistant Surgical | DX: Z98.84 Bariatric surgery status (principal); Z71.3 Dietary counseling and surveillance | CPT/HCPCS: 99212 ==

== ENCOUNTER 2024-10-14 11:22 | Outpatient (AMB) | payer OTHER, SELFPAY ==
--- NOTE | 2024-10-14 11:25 | MHC.OFFVISWM ---
VS Expanded 10/14/24 11:31 BP 129/67 Blood Pressure Location Rt brachial Blood Pressure Position Sitting Pulse 66 Pulse Source Pulse Oximeter Temp 97.7 F Temperature Source Temporal Artery Scan Pulse Oximetry 98 Oxygen Delivery Method Room Air Height 5 ft 2 in Weight 187 lb 6.4 oz BMI 34.3 Body Fat % 43.4 Body Fat Mass 81.4 Fat Free Mass 106.0 Visceral Fat Rating 11.0 Body Water % 40.2 Body Water Mass 75.4 Muscle Mass/Score 100.8 Basal Metabolic Rate/Score 1,481 Intake Visit Reasons: OV PO LSG 10/15/18 *GLP-1* Senior Quality Assurance Analyst Required: Yes Senior Quality Assurance Analyst Name: hospital cmi Allergies No Known Allergies [No Known Allergies*] Allergy (Verified 10/14/24 11:28) Medication List - Last Reconciled 10/14/24 by MELODY Cisneros amitriptyline 25 mg PO BEDTIME biotin 1,000 mcg PO DAILY buspirone 15 mg PO TID cholecalciferol (vitamin D3) 25 mcg PO DAILY clonazepam 1 mg PO BID PRN cyanocobalamin (vitamin B-12) (Vitamin B-12) 1,000 mcg PO DAILY diclofenac sodium 1% (Arthritis Pain (diclofenac)) 2 grams topical QID iron,carbonyl-vitamin C 65 mg iron- 125 mg (Vitron-C) 1 tab PO BEDTIME meloxicam 15 mg PO DAILY multivitamin 1 tab PO DAILY oxybutynin chloride 5 mg PO BEDTIME PRN tramadol 50 mg PO TID PRN trazodone 0 mg PO venlafaxine ER 150 mg PO DAILY vitamin A 1 cap PO DAILY HPI Comments Details: Patient is a 54-year-old female who returns to the office today in follow-up. She is approximately 6 years post sleeve gastrectomy performed 10/15/2018. She was last seen in the office in , for the 1st time in a year, at that time her weight was 187.6 lb with a BMI of 34.6. She was given right BMI kayla and Zepbound was prescribed although denied. Wegovy was prescribed although denied.. Weight today is 187.4 with a BMI of 34.3. She has lost 1.8 lb. She did not get labs done which were ordered at her visit in July. She states that she had periods of lightheadedness and feelings of hunger when she followed the meal plan exactly. She amended it herself by increasing the food portions slightly and the lightheadedness resolved. She did also start drinking more fluids. Returned to right bmi and has a new plan. She also started transdermal hormonal patches for perimenopausal symptoms Meal plan: 2 eggs, sometimes she does 3. meats with salad or vegetables or sweet potatoe, not measuring the quantity premier protein rtd shake another meal with protein and vegetables, sometimes white rice fruit or yogurt or cheese drinking 60 oz daily exercise plan cardio videos at home weights at home stationary bike at home possibly 500 caloires burned 4-5 days per week. PFSH Medical History Fibromyalgia Arthritis Depression with anxiety Surgical History Hx of hysterectomy H/O umbilical hernia repair Tubal ligation status S/P laparoscopic sleeve gastrectomy Family History Mother Diabetes Hypertension Father Hypertension Social History Alcohol intake: current Alcohol intake frequency: holidays/special occasions only Patient Tobacco Use Status: Never used Tobacco Physical Exam Const General: healthy appearing and no acute distress Resp Effort & Inspection: normal respiratory effort Auscultation: clear to auscultation bilaterally Cardio Rate: regular rate Rhythm: regular rhythm GI Auscultation: normal bowel sounds Extrem General: Yes normal to inspection Assessment & Plan Assessment & Plan (1) S/P laparoscopic sleeve gastrectomy: Code(s): Z98.84 - Bariatric surgery status Category: Surgical Plan: Patient has yet to get the labs done that I ordered in July. Additionally, she is not following the meal plan as directed. I encouraged her to do so. Additionally encouraged to increase her exercise and monitor her calories burned more accurately. We will have her return to the clinic in approximately 2 months
[2024-10-14 11:31] VITALS: BP 129/67; PULSE 66; TEMP 36.5; O2SAT 98; BMI 34.3
--- OUTSIDE RECORDS SUMMARY | 2024-10-14 12:22 | XMS_ITS | Data Portability ---
Author Organization [facility], [facility] Address [address] [place] [phone] Care Team Providers Care Operations And Maintenance Technican Name Role Phone [facility] Referring Prov ider Assessment No assessment recorded. Plan of Treatment Reminders Order Date Submit Date Provider Last Modified By Organization Details Last Modified Time Details Appointments None recorded. Lab culture, urine 2022 023 CAROLINE [facility] (Centralized Electronic Ordering - All Locations), Patient Can Go To The Location Of Their Choice, [id number] 07:13:14 urinalysis , dipstick 2022 0[email or web address], [address] [place] [address], [phone] 18:33:40 Referral None recorded. Procedures None recorded. Surgeries None recorded. Imaging None recorded. Medication Orders Bactrim DS 800 mg-160 mg tablet 2022 023 [email or web address] [email or web address] Not available 18:33:39 Bactrim DS 800 mg-160 mg tablet 2022 023 [facility]/Pharmacy #[id number], [address] [place], [address], 18:33:42 Patient TargetsNo targets recorded. Patient InstructionsNo instructions recorded. Reason for Referral None Reported. Results Created Date Observation Date Name Description Value Unit Range Abnormal Flag Note LastModifiedBy Organization Detail LastModifiedTime 10/09/1910/09/2022 URINE CULTU RE specimen description CLEAN CATCH (URINE ) Not Available [facility] (Centralized Electronic Ordering - All Locations) Patient Can Go To The Location Of Their Choice, [id number] 10/10/2022 07:13:13 10/09/1910/09/2022 URINE CULTU RE special requests NONE Not Available [facility] (Centralized Electronic Ordering - All Locations) Patient Can Go To The Location Of Their Choice, [id number] 10/10/2022 07:13:13 10/09/1910/10/2022 URINE CULTU RE culture NO GROWTH Not Available [facility] (Centralized Electronic Ordering - All Locations) Patient Can Go To The Location Of Their Choice, [id number] 10/10/2022 07:13:13 10/09/1910/10/2022 URINE CULTU RE report status FINAL 2022 Not Available [facility] (Centralized Electronic Ordering - All Locations) Patient Can Go To The Location Of Their Choice, [id number] 10/10/2022 07:13:13 10/09/1910/08/2022 URINE CULTU RE results Cance lled, no spec recd after 7 days Not Available [facility] (Centralized Electronic Ordering - All Locations) Patient Can Go To The Location Of Their Choice, [facility] 10/15/2022 04:34:38 10/09/1910/08/2022 urina lysis , dipst ick Leukocytes Positi ve Not Available [facility] ed [address] [place] [address], [phone] 10/08/2022 18:31:43 10/09/1910/08/2022 urina lysis , dipst ick Nitrite positi ve Not Available [facility] ed [address] [place] [address], [phone] 10/08/2022 18:31:43 Result Notes None recorded. Medical Equipment None Reported. Medications Name Sig Start Date Stop Date Status Note LastModified by Organization Details LastModified Time methocarbamo l 500 mg tablet TAKE 2 TABLET BY MOUTH 3 TIMES A DAY,X30 DAYS active Not Available Not Available No t Available venlafaxine ER 37.5 mg capsule,exte nded release 24 hr TOME 1 C PSULA POR V A ORAL TODOS LOS D WITH 150MG active Not Available Not Available No t Available meloxicam 15 mg tablet TAKE 1 TABLET EVERY DAY NEEDED FOR PAIN. TAKE WITH FOOD active Not Available Not Available No t Available clonazepam 0.5 mg tablet TOME KARAN TABLETA DOS VECES AL D A CUANDO SEA NECESARIO active Not Available Not Available No t Available venlafaxine ER 150 mg capsule,exte nded release 24 hr TOME KARAN C PSULA TODOS LOS D active Not Available Not Available No t Available cyanocobalam in (vit B-12) 1,000 mcg tablet TOME KARAN TABLETA TODOS LOS D active Not Available Not Available No t Available estradiol 0.05 mg/24 hr semiweekly transdermal patch APPLY 1 PATCH TOPICALLY TO SKIN TWICE WEEKLY PER INSTRUCTION S active Not Available Not Available No t Available sulfamethoxa zole 800 mg-trimethop rim 160 mg tablet TOME KARAN TABLETA CADA 12 HORAS POR 7 D active Not Available Not Available No t Available peg-electrol yte solution 420 gram oral solution DRINK 240 ML EVERY 15-20 MINUTES UNTIL FIRST HALF IS GONE, REPEAT 6 HOURS PRIOR TO PROCEDURE active Not Available Not Available No t Available acetaminophe n 500 mg tablet TOME DOS TABLETAS POR V A ORAL CADA SEIS HORAS CUANDO SEA NECESARIO PARA EL DOLOR active Not Available Not Available No t Available amitriptylin e 25 mg tablet TOME KARAN TABLETA TODOS LOS D AL ACOSTARSE active Not Available Not Available No t Available trazodone 100 mg tablet TOME KARAN TABLETA TODOS LOS D EN LA NOCHE active Not Available Not Available No t Available ferrous sulfate 325 mg (65 mg iron) tablet TAKE 1 TABLET BY MOUTH DAILY FOR 30 DAYS. DO NOT TAKE WITH MILK OR CALCIUM active Not Available Not Available N ot Available buspirone 10 mg tablet TAKE TWO TABLETS BY MOUTH THREE TIMES A DAY active Not Available Not Available Not Available oxybutynin chloride ER 5 mg tablet,exten ded release 24 hr active Not Available Not Available Not Available ibuprofen 600 mg tablet TOME KARAN TABLETA POR V A ORAL CADA SEIS HORAS CUANDO SEA NECESARIO PARA EL DOLOR. NOT WITH MELOXICAM active Not Available Not Available No t Available fluticasone propionate 50 mcg/actuatio n nasal spray,suspen israel USE 2 SPRAYS IN EACH NOSTRIL ONCE A DAY DURING ALLERGY SEASON active Not Available Not Available No t Available simethicone 80 mg chewable tablet CHEW 1 TABLET POR V A ORAL SUZI VECES AL D A CUANDO SEA NECESARIO FOR GAS active Not Available Not Available No t Available buspirone 15 mg tablet TOME KARAN TABLETA SUZI VECES AL D A CUANDO SEA NECESARIO active Not Available Not Available No t Available oxycodone 5 mg tablet TOME KARAN TABLETA POR V A ORAL CADA SEIS HORAS CUANDO SEA NECESARIO PARA EL DOLOR active Not Available Not Available No t Available Vitamin D3 25 mcg (1,000 unit) tablet TOME KARAN TABLETA TODOS LOS D active Not Available Not Available No t Available Vitamin D3 25 mcg (1,000 unit) capsule TOME KARAN C PSULA TODOS LOS D active Not Available Not Available No t Available nitrofuranto in monohydrate/ macrocrystal s 100 mg capsule TOME 1 C PSULA POR V A ORAL DOS VECES AL D A FOR 5 DAYS active Not Available Not Available No t Available Gavilax 17 gram/dose oral powder TAKE 17 GM POR V A ORAL DAILY, DISSOLVE IN WATER BEFORE TAKING active Not Available Not Available No t Available Vitron-C 65 mg iron-125 mg tablet,delay ed release TOME KARAN TABLETA POR V A ORAL AL ACOSTARSE active Not Available Not Available No t Available Ferate 240 mg (27 mg iron) tablet 1 TABLET BY MOUTH DAILY WITH JUICE DISCONTINUE FERROUS SULFATE active Not Available Not Available No t Available Vitals Date Recorded Oxygen saturation Oxygen saturation in Arterial blood by Pulse oximetry Body temperature Body weight Heart rate Respiratory rate Systolic blood pressure Diastolic blood pressure Provider Name and Address Organization Details Last Updated DateTime 3 100 % 100 % 97.7 [degF] 00991.8 8 g 64 /min 16 /min 123 mm[Hg] 81 mm[Hg] Not Available [facility] 3 18:31:19 Social History None recorded. Functional Status None recorded. Mental Status None recorded. Family History Nothing Reported. Medical History No medical history recorded. Gynecological HistoryNo gynecological history recorded. Obstetrics History GPAL:G 0 P 0 0 0 0 Past Encounters Encounter ID Performer Location Encounter Start Date Encounter Closed Date Diagnosis/Indication Diagnosis SNOMED-CT Code Diagnosis ICD10 Code Diagnosis Note [id number] Naif Ceja MD [facility] - [facility] [address] [place] [phone] 10/08/2022 18:31:17 10/09/2022 11:02:05 Acute cystitis 33116372 N30.00 Patient presents with dysuria in setting of recent surgery. UA consistent with UTI. There is no retained hardware or Moses catheter.P isac- Bactrim: first dose given by heating worker, rest to pharmacy- Urine culture to [facility] Concerns Section Related Observation LastModified by Organization Isidro torres LastModified Time None Recorded Concern Status LastModified by Organization Details LastModified Time None Recorded Advance Directives Directive None Recorded Payers Insurance Date Sequence Insurance Name Policy Number Policy Watson Covered Member ID Watson Member ID Guarantor Name 10/08/2022 1 [facility] - DOS ON OR AFTER 2022 - DUAL ELIGIBLE - [facility] OPTIONS AND ONE CARE (MEDICARE REPLACEMENT/ADV ANTAGE - HMO) Lani chaves [id number] Lani lopez Notes Date Note Type Note Provider Name and Address Organization Details Recorded Time 10/08/2022 text/html HPI: Pt. s/p hysterectomy and sling 09/10/2022 Pt. reports: +left lower abd pain +Pain in mid lower abd (pulsating) w/ urinating. Pain is intermittent and spasmodic, worse with positional changes. +burning w/ urination +foul smelling urine +Trouble going to bathroom Sometimes has a few days and doesn't pass any stool then she will go and she has to push to defecate-not like constipated hard stools but just requires effort. Stool is normal appearing (brown and soft) +nausea Taking miralax-sometimes at triple amount ordered at one time (educated against this) Pt. denies: -fever -urinary frequency -urinary urgency -bleeding -vomiting -s/sx of infection at incisional site (redness, heat, drainage) .................. .................. .................. .................. .................. .................. .................. ............... CRC Nursing Assessment: Comments: CRC RN did not require any additional information to process this visit. .................. .................. .................. .................. .................. .................. .................. ............... Cartographic Technician Note From Dejuan Curiel: Pt CO of abd Pr and urination Sx. Pt says that she has had abd Pn for 3 days. Pt states the Pn is sharp and hurts more when moving or changing positions. Pt stated she noticed a foul odor with her urine. Pt states she does not have issues going to the bathroom, but does have some Pn with urination. Pt stated has not had any fevers . Neg SOB or Chest Pn. UA Dip Pos for ARCHANA. Pt states she does have TTP bi - lat flank Pn. Pt had surgery recently, incision areas were not erythema or shown any signs of infection. Discussed warning signs of when to go to the ED or call 911 . Educated Pt on supportive care. .................. .................. .................. .................. .................. .................. .................. ............... Disposition: Fulfilled Naif Ceja MD [address] [facility],[address], [place], [phone], [employer] 10/08/2022 18:33:56 OBGyn Episode No OBEpisode recorded.
== END 2024-10-14 13:14 | disposition home or self-care (01) ==
LOC: HO.HBS 11:23
PROVIDERS: PCP Family Medicine; Visit Provider Physician Assistant Surgical
DX: E66.9 Obesity, unspecified (principal); Z68.32 Body mass index [BMI] 32.0-32.9, adult; Z90.3 Acquired absence of stomach [part of]; Z98.84 Bariatric surgery status
CPT/HCPCS: 99213

== ENCOUNTER → 2024-10-14 11:22 | Outpatient (BNVA) | payer OTHER, SELFPAY | PROVIDERS: PCP Family Medicine; Visit Provider Physician Assistant Surgical | DX: Z98.84 Bariatric surgery status (principal) | CPT/HCPCS: 99212 ==

== ENCOUNTER 2024-10-25 09:21 | Outpatient (REF) | payer OTHER, SELFPAY ==
--- OUTSIDE RECORDS SUMMARY | 2024-10-25 09:59 | XMS_ITS | Data Portability ---
Author Organization [facility], [facility] Address [address] [place] [phone] Care Team Providers Care Executive Services Administrator Name Role Phone [facility] Referring Prov ider Assessment No assessment recorded. Plan of Treatment Reminders Order Date Submit Date Provider Last Modified By Organization Details Last Modified Time Details Appointments None recorded. Lab culture, urine 2022 023 CAROLINE [facility] (Centralized Electronic Ordering - All Locations), Patient Can Go To The Location Of Their Choice, [id number] 07:13:14 urinalysis , dipstick 2022 023 [email or web address] [email or web address] [facility], [address] [place] [address], [phone] 18:33:40 Referral None recorded. Procedures None recorded. Surgeries None recorded. Imaging None recorded. Medication Orders Bactrim DS 800 mg-160 mg tablet 2022 023 [email or web address] Not available 18:33:39 Bactrim DS 800 mg-160 mg tablet 2022 023 [facility]/Pharmacy #[id number], [address] [place], [address], 18:33:42 Patient TargetsNo targets recorded. Patient InstructionsNo instructions recorded. Reason for Referral None Reported. Results Created Date Observation Date Name Description Value Unit Range Abnormal Flag Note LastModifiedBy Organization Detail LastModifiedTime 10/09/1910/09/2022 URINE CULTU RE specimen description CLEAN CATCH (URINE ) Not Available [facility] (Centralized Electronic Ordering - All Locations) Patient Can Go To The Location Of Their Choice, [id number] 10/10/2022 07:13:13 10/09/1910/09/2022 URINE CULTU RE special requests NONE Not Available [facility] (Centralized Electronic Ordering - All Locations) Patient Can Go To The Location Of Their Choice, [id number] 10/10/2022 07:13:13 10/09/1910/10/2022 URINE CULTU RE culture NO GROWTH Not Available [facility] (Centralized Electronic Ordering - All Locations) Patient Can Go To The Location Of Their Choice, [id number] 10/10/2022 07:13:13 10/09/1910/10/2022 URINE CULTU RE report status FINAL 2022 Not Available [facility] (Centralized Electronic Ordering - All Locations) Patient Can Go To The Location Of Their Choice, [id number] 10/10/2022 07:13:13 10/09/1910/08/2022 URINE CULTU RE results Cance lled, no spec recd after 7 days Not Available [facility] (Centralized Electronic Ordering - All Locations) Patient Can Go To The Location Of Their Choice, [id number] 10/15/2022 04:34:38 10/09/1910/08/2022 urina lysis , dipst ick Leukocytes Positi ve Not Available [facility] ed [address] [place] [address], [phone] 10/08/2022 18:31:43 10/09/1910/08/2022 urina lysis , dipst ick Nitrite positi ve Not Available [facility] ed [address] [place] [address], [phone] 10/08/2022 18:31:43 Result Notes None recorded. 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 Functional Status None recorded. Mental Status None recorded. Family History Nothing Reported. Medical History No medical history recorded. Gynecological HistoryNo gynecological history recorded. Obstetrics History GPAL:G 0 P 0 0 0 0 Past Encounters Encounter ID Performer Location Encounter Start Date Encounter Closed Date Diagnosis/Indication Diagnosis SNOMED-CT Code Diagnosis ICD10 Code Diagnosis Note [id number] Naif Ceja MD [facility] - [facility] [address] [place] [phone] 10/08/2022 18:31:17 10/09/2022 11:02:05 Acute cystitis [id number] N30.00 Patient presents with dysuria in setting of recent surgery. UA consistent with UTI. There is no retained hardware or Moses catheter.P isac- Bactrim: first dose given by equipment manager, rest to pharmacy- Urine culture to [facility] Concerns Section Related Observation LastModified by Organization Isidro torres LastModified Time None Recorded Concern Status LastModified by Organization Details LastModified Time None Recorded Advance Directives Directive None Recorded Payers Insurance Date Sequence Insurance Name Policy Number Policy Watson Covered Member ID Watson Member ID Guarantor Name 10/08/2022 1 [facility] - DOS ON OR AFTER 2022 - DUAL ELIGIBLE - SNF OPTIONS AND ONE CARE (MEDICARE REPLACEMENT/ADV ANTAGE - HMO) Lani chaves [id number] Lani lopez Notes Date Note Type Note [...] .................. .................. .................. .................. .................. .................. ............... Glass Artist Note From Dejuan Curiel: Pt CO of [...] ............... Disposition: Fulfilled Naif Ceja MD [address] [facility],[address], [place], [phone], [employer] 10/08/2022 18:33:56 OBGyn Episode No OBEpisode recorded.
[2024-10-25 10:14] LABS: MANUAL DIFF FLAG NO
[2024-10-25 10:39] LABS: Basophils Absolute Auto 0.1 X10*3/uL (0.0-0.2); Basophils Percent Auto 0.9 % (0-2); Eosinophils Absolute Auto 0.2 X10*3/uL (0.0-0.4); Hematocrit 38.1 % (37.0-47.0); Hemoglobin 12.9 g/dl (12.0-16.0); Imm Gran Abs Auto 0.03 X10*3/uL (0.00-0.03); Imm Gran Pct Auto 0.5 % (0.0-0.4); Lymphocytes Percent Auto 17.3 % (20-40); Mean Corpuscular HGB Conc 33.9 g/dl (31.0-35.0); Mean Corpuscular Hemoglobin 32.2 pg (27.0-33.0); Mean Platelet Volume 10.5 fL (9.4-12.3); Monocytes Absolute Auto 0.6 X10*3/uL (0.1-1.2); Monocytes Percent Auto 10.2 % (2-11); Neutrophils Absolute Auto 3.9 x10*3/uL (2.0-8.3); Neutrophils Percent Auto 68.1 % (45-73); Platelet Count 239 X10*3/uL (160-400); Red Blood Count 4.01 X10*6/uL (4.20-5.50); Red Cell Distribution Width 12.8 % (11.0-16.0); White Blood Count 5.7 X10*3/uL (4.8-10.8)
[2024-10-25 10:47] LABS: Estimated Average Glucose 103 mg/dL; Hemoglobin A1c % 5.2 % (<6.0)
[2024-10-25 11:10] LABS: Alanine Aminotransferase 13 U/L (0-31); Albumin Level 3.8 g/dL (3.5-5.0); Alkaline Phosphatase 79 U/L (39-117); Anion Gap 9 (12-20); Aspartate Amino Transferase 23 U/L (5-31); Bilirubin Total 0.5 mg/dL (0.0-1.0); Blood Urea Nitrogen 13 mg/dL (9-16); C Reactive Protein 0.43 mg/dL (< or = 0.50); Calcium 8.9 mg/dL (8.4-10.2); Carbon Dioxide 26 mmol/L (22-29); Chloride 107 mmol/L (96-108); Cholesterol 180 mg/dL (<200); Estimated Glomerular Filt Rate > 60; Glucose Random 89 mg/dL (60-115); HDL Cholesterol 59 mg/dL (>40); Iron 138 mcg/dL (30-160); LDL Cholesterol Calculated 105 mg/dL (<100); Percent Iron Saturation 46 % (15-50); Sodium 138 mmol/L (135-145); Total Iron Binding Capacity 300 mcg/dL (228-428); Total Protein 6.8 g/dL (6.5-8.0); Triglycerides 83 mg/dL (<150); Unsaturated Iron Binding 162 ug/dL
[2024-10-25 11:31] LABS: Ferritin 70 ng/mL (10-250); Insulin 7 uU/mL (2-29); TSH reflex Free T4 0.84 uIU/mL (0.32-4.0); Vitamin D 25-OH Total 29.6 ng/mL (>30)
[2024-10-25 11:35] LABS: Folate 6.3 ng/mL (> or = 4.0); Vitamin B12 413 pg/mL (200-900)
[2024-10-27 13:03] LABS: Zinc 72 mcg/dL (60-130)
[2024-10-29 04:38] LABS: Vitamin A 42 mcg/dL (38-98)
[2024-10-30 12:29] LABS: Vitamin B1 8 nmol/L (8-30)
== END 2024-10-25 09:22 | disposition home or self-care (01) ==
LOC: HO.LAB 09:21
PROVIDERS: PCP Family Medicine; Visit Provider Physician Assistant Surgical
DX: Z13.1 Encounter for screening for diabetes mellitus (principal); Z13.6 Encounter for screening for cardiovascular disorders; Z98.84 Bariatric surgery status
CPT/HCPCS: 36415; 80053; 80061; 82306; 82607; 82728; 82746; 83036; 83525; 83540; 84425; 84443; 84590; 84630; 85025; 86140